=== PATIENT | female | born 1965 | race Caucasian/White ===

== ENCOUNTER 2018-02-18 06:43 | Inpatient (IN) | payer BC ==
[~2018-02-18 06:43] MED LIST: Famotidine 20 MG/2 ML SDV IVPUSH SCH; Ketorolac 30 MG/ML SDV IVPUSH SCH; Lactated Ringers 1,000 ML IV SCH; Scopolamine 1.5 MG Transdermal Patch TRDERM SCH
[2018-02-18] MEDS ORDERED: ePHEDrine 50 MG/ML SDV ONE ×2 (07:07→09:16)
[2018-02-18] MEDS ORDERED: ceFAZolin/Dextrose,Iso-Osmotic 2 GM/50 ML Duplex Bag IV ONE (07:07)
[2018-02-18] MEDS ORDERED: fentaNYL 100 MCG/2 ML SDV ONE (07:07)
[2018-02-18] MEDS ORDERED: Midazolam 1 MG/ML 2 ML SDV ONE ×2 (07:07→08:32)
[2018-02-18] MEDS ORDERED: Phenylephrine/Normal Saline 100 MCG/ML 10 ML Syringe ONE (07:07)
[2018-02-18] MEDS ORDERED: Propofol 200 MG/20 ML SDV ONE (07:12)
[2018-02-18] MEDS ORDERED: Ropivacaine 49.25 ML, Ketorolac 30 MG, EPINEPHrine 0.5 MG, cloNIDine 80 MCG in Sodium C... INJECT SCH (08:00)
[2018-02-18] MEDS ORDERED: Tranexamic Acid 4,000 MG in Sodium Chloride 0.9% 100 ML IV SCH (08:00)
[2018-02-18] MEDS ORDERED: Bupivacaine Liposome 1.3% 20 ML SDV INFILT SCH (08:00)
[2018-02-18] MEDS ORDERED: ceFAZolin 1 GM in Premix Bag 1 BAG IV SCH (08:00)
[2018-02-18] MEDS ORDERED: Ondansetron 4 MG/2 ML SDV ONE (08:20)
--- NOTE | 2018-02-18 09:46 | PCM.OPNOTE ---
- General Post-Op/Procedure Note Date of Surgery/Procedure: 02/18/18 Operative Procedure(s): L TKA Post-Op Diagnosis: DJD left knee Anesthesia Technique: Moderate Sedation, Spinal Primary Surgeon: Sherin Xavier Typesetting Machine Tender: Mabel Bentley Typesetting Machine Tender: Anoop Kohler in mLs: 50 Condition: Good Free Text/Narrative:: tt=52 min #[id number]
[2018-02-18] MEDS ORDERED: Ondansetron 4 MG/2 ML SDV IV PRN (09:57)
[2018-02-18] MEDS ORDERED: Bisacodyl 10 MG Supp RECTAL PRN (09:58)
[2018-02-18] MEDS ORDERED: Aluminum Hydroxide/Magnesium Hydroxide/Simethicone Susp 30 ML Cup PO PRN (09:58)
[2018-02-18] MEDS ORDERED: Morphine PF 30 MG/30 ML PCA Vial IV SCH (10:00)
[2018-02-18] MEDS ORDERED: HYDROmorphone 2 MG/ML SDV IVPUSH ONE (10:49)
[2018-02-18] MEDS ORDERED: Promethazine 25 MG/ML SDV IM ONE (10:49)
--- NOTE | 2018-02-18 10:49 | PCM.PREANE ---
Preanesthetic Assessment - Anesthesia/Transfusion/Family Hx Anesthesia History: Prior Anesthesia Without Reaction Family History of Anesthesia Reaction: No Transfusion History: Prior Transfusion Without Reaction - Physical Assessment NPO Status Date: 02/17/18 NPO Status Time: 19:00 O2 Sat by Pulse Oximetry: 100 Respiratory Rate: 15 Vital Signs: Last Vital Signs Temp 36.5 C 02/18/18 06:59 Pulse 77 02/18/18 10:44 Resp 15 02/18/18 10:44 BP 82/52 L 02/18/18 10:44 Pulse Ox 100 02/18/18 10:44 Height: 1.65 m Weight: 63.503 kg ASA Class: 2 Mental Status: Alert & Oriented x3 Airway Class: Mallampati = 2 Dentition: Reports: Dentures ROM/Head Extension: Full Lungs: Clear to Auscultation, Normal Respiratory Effort Cardiovascular: Regular Rate, Regular Rhythm - Lab Values: Laboratory Last Values Urine HCG, Qual NEGATIVE (NEGATIVE) 02/18/18 06:00 - Allergies Allergies/Adverse Reactions: Allergies Allergy/AdvReac Type Severity Reaction Status Date / Time codeine Allergy Nausea and Verified 02/18/18 08:18 Vomiting - Anesthesia Plan Pre-Op Medication Ordered: None - Acknowledgements Anesthesia Type Planned: Spinal Pt an Appropriate Candidate for the Planned Anesthesia: Yes Alternatives and Risks of Anesthesia Discussed w Pt/Guardian: Yes Pt/Guardian Understands and Agrees with Anesthesia Plan: Yes Additional Comments: PMH: chronic pain- on tramadol and gabipentin, htn, anxiety, adequately beta blocked Plan: spinal with sedation PreAnesthesia Questionnaire HEENT History: Reports: None Other HEENT History: wears glasses Cardiovascular History: Reports: Hypertension Respiratory History: Reports: None Gastrointestinal History: Reports: Other (See Below) Other Gastrointestinal History: hx of ? volvulus x2 Genitourinary History: Reports: None PILE DRIVER History: Reports: None Musculoskeletal History: Reports: Arthritis, Fracture Other Musculoskeletal History: hx of fx left elbow and ribs Neurological History: Reports: Head Trauma, Vertigo, Other (See Below) Other Neuro History: hx of motion sickness Psychiatric History: Reports: Anxiety Endocrine/Metabolic History: Reports: None Hematologic History: Reports: Blood Transfusion(s) Immunologic History: Reports: None Oncologic (Cancer) History: Reports: None Dermatologic History: Reports: None - Past Surgical History Head Surgeries/Procedures: Reports: None HEENT Surgical History: Reports: Naso-Sinus Surgery, Other (See Below) Other HEENT Surgeries/Procedures: hx of Rhinoplasty and traumatic injury to face with sinuses and nose repaired Cardiovascular Surgical History: Reports: None GI Surgical History: Reports: Appendectomy, Bariatric Procedure, Cholecystectomy , Colon, Hernia, Abdominal Other GI Surgeries/Procedures: hx of colon resection x2 for ? volvulus, umbilical hernia repair Female Surgical History: Reports: Breast Implant Endocrine Surgical History: Reports: None Neurological Surgical History: Reports: None Musculoskeletal Surgical History: Reports: Arthroscopic Knee, ORIF Other Musculoskeletal Surgeries/Procedures:: hx ORIF left elbow with hardware removed - SUBSTANCE USE Smoking Status *Q: Never Smoker Recreational Drug Use History: No - HOME MEDS Home Medications: Home Meds Acetaminophen [Tylenol] 1 - 2 tab PO Q4H PRN 02/13/18 [History] Gabapentin [Neurontin] 300 mg PO TID 02/13/18 [History] Ipratropium [place] 0.03 percent NASBOTH QAM 02/13/18 [History] Lisinopril [Prinivil] 20 mg PO QAM 02/13/18 [History] Metoprolol Succinate 50 mg PO QAM 02/13/18 [History] Potassium Chloride 20 meq PO BID 02/13/18 [History] traMADol [Ultram] 50 - 100 mg PO Q8H PRN 02/13/18 [History] - CURRENT (IN HOUSE) MEDS Current Meds: Current Medications Al Hydroxide/Mg Hydroxide (Mag-Al Plus) 30 ml PO Q4H PRN PRN Reason: indigestion Aspirin (Aspirin) 325 mg PO BID [facility] Bisacodyl (Dulcolax) 10 mg RECTAL DAILY PRN PRN Reason: Constipation Bupivacaine Liposome (Exparel) 20 ml INFILT ASDIRECTED [facility] Celecoxib (Celebrex) 200 mg PO BID [facility] Docusate Sodium (Colace) 100 mg PO BID [facility] Famotidine (Pepcid) 40 mg IVPUSH ONARRIVE [facility] Last Admin: 02/18/18 07:28 Dose: 40 mg Famotidine (Pepcid) 40 mg PO DAILY [facility] Gabapentin (Neurontin) 300 mg PO TID [facility] Cefazolin Sodium/Dextrose 1 gm (/ Premix) 50 mls @ 100 mls/hr IV ONCALL JOHN Ropivacaine 49.25 ml/Ketorolac Tromethamine 30 mg/Epinephrine HCl 0.5 mg/ Clonidine HCl 80 mcg/ Sodium Chloride 76.55 mls @ 50 mls/sec INJECT ASDIRECTED [facility] Lactated Ringer's (Ringers, Lactated) 1,000 mls @ 100 mls/hr IV ASDIRECTED [facility] Last Admin: 02/18/18 07:15 Dose: 100 mls/hr Tranexamic Acid 4,000 mg/ (Sodium Chloride) 140 mls @ 600 mls/hr IV ASDIRECTED [facility] Acetaminophen 1,000 mg/ Premix 100 mls @ 400 mls/hr IV Q6H JOHN Stop: 02/19/18 01:14 Cefazolin Sodium/Dextrose 1 gm (/ Premix) 50 mls @ 100 mls/hr IV Q8H [facility] Stop: 02/19/18 00:29 Ketorolac Tromethamine (Toradol) 30 mg IVPUSH ONARRIVE [facility] Last Admin: 02/18/18 07:23 Dose: 30 mg Ketorolac Tromethamine (Toradol) 30 mg IVPUSH Q6H JOHN Stop: 02/19/18 05:00 Lisinopril (Prinivil) 10 mg PO DAILY [facility] Metoprolol Succinate (Toprol Xl) 50 mg PO QAM [facility] Morphine Sulfate (Morphine Labor Law Professor 30 Mg In 30 Ml) 30 mg IV ASDIRECTED [facility]; Protocol Stop: 02/19/18 08:00 Last Admin: 02/18/18 10:27 Dose: 30 mg Morphine Sulfate (Morphine) 1 - 3 mg IVPUSH Q3H PRN PRN Reason: Pain Non-Formulary Medication (Ipratropium [place]) 0.03 percent NASBOTH QAM [facility] Ondansetron HCl (Zofran) 4 mg IV Q6HR PRN PRN Reason: NAUSEA/VOMITING Oxycodone HCl (Oxycodone) 5 - 10 mg PO Q4H PRN PRN Reason: Pain Stop: 02/19/18 08:00 Oxycodone/Acetaminophen (Percocet 325-5 Mg) 1 - 2 tab PO Q4H PRN PRN Reason: Pain Potassium Chloride (Klor-Con M20) 20 meq PO BID [facility] Scopolamine (Transderm-Scop) 1.5 mg TRDERM ONARRIVE [facility] Last Admin: 08/27/18 07:35 Dose: 1.5 mg Tramadol HCl (Ultram) 50 - 100 mg PO Q6H PRN PRN Reason: Pain Discontinued Medications Cefazolin Sodium/Dextrose (Ancef) Confirm Administered Dose 2 gm IV .STK-MED ONE Stop: 02/18/18 07:08 Ephedrine Sulfate (Ephedrine Sulfate) Confirm Administered Dose 50 mg .ROUTE .STK-MED ONE Stop: 02/18/18 07:08 Ephedrine Sulfate (Ephedrine Sulfate) Confirm Administered Dose 50 mg .ROUTE .STK-MED ONE Stop: 02/18/18 09:17 Fentanyl (Sublimaze) Confirm Administered Dose 100 mcg .ROUTE .STK-MED ONE Stop: 02/18/18 07:08 Midazolam HCl (Versed 1 Mg/Ml) Confirm Administered Dose 2 mg .ROUTE .STK-MED ONE Stop: 02/18/18 07:08 Midazolam HCl (Versed 1 Mg/Ml) Confirm Administered Dose 2 mg .ROUTE .STK-MED ONE Stop: 02/18/18 08:33 Ondansetron HCl (Zofran) Confirm Administered Dose 4 mg .ROUTE .STK-MED ONE Stop: 02/18/18 08:21 Phenylephrine HCl (Phenylephrine In Ns 100 Mcg/Ml) Confirm Administered Dose 1 mg .ROUTE .STK-MED ONE Stop: 02/18/18 07:08 Propofol (Diprivan 20 Ml) Confirm Administered Dose 600 mg .ROUTE .STK-MED ONE Stop: 02/18/18 07:13 Tranexamic Acid (Cyklokapron) Confirm Administered Dose 4,000 mg .ROUTE .STK- MED ONE Stop: 02/18/18 07:17
[2018-02-18] MEDS ORDERED: Phenylephrine 10 MG in Sodium Chloride 0.9% 99 ML IV SCH (11:00)
--- NOTE | 2018-02-18 11:24 | OR ---
SURGEON: Sherin Xavier MD DATE OF PROCEDURE: 02/18/2018 PREOPERATIVE DIAGNOSIS: Degenerative joint disease, left knee, tricompartmental. POSTOPERATIVE DIAGNOSIS: Degenerative joint disease, left knee, tricompartmental. PROCEDURE: Left total knee arthroplasty using patient specific instrumentation. ASSISTANTS: Mabel Bentley PA-C and Anoop Asher MD, PGY2 ANESTHESIA: Spinal with sedation. ESTIMATED BLOOD LOSS: 50 mL. TOURNIQUET TIME: 52 minutes. COMPLICATIONS: None. DVT PROPHYLAXIS: PAS boot and JOMAR hose to the nonoperative leg. IMPLANTS USED: Kamille Persona femoral component size 8 standard (LPS), tibial component size F, 10 mm all-polyethylene articular surface, and 32 mm all-polyethylene patella. 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 She also had evidence of significant chondromalacia along the patellofemoral joint. No significant synovitis was noted. She did have mild chondromalacia noted along the lateral compartment as well. BRIEF HISTORY: Sandra is a 52-year-old female, who has had complaint of progressive left knee pain. She has previously undergone conservative treatment including a knee arthroscopy, which did not give her lasting relief. Due to her lack of response to conservative treatment, I did recommend surgical intervention. The risks and goals of the procedure were discussed with the patient and were documented preoperatively. She agreed to proceed. DESCRIPTION OF PROCEDURE: The patient was properly identified and brought to the operating room. The patient was then transferred from the operating room cart and placed on the operating table in a supine position. Anesthesia was administered by the anesthesia staff. After adequate anesthesia was obtained, a well-padded tourniquet was applied to the surgical lower extremity. Gonzalez catheter was placed. The lower extremity was then prepped in standard fashion using ChloraPrep solution. It was then sterilely draped. A time-out was performed to ensure correct site and procedure. Preoperative antibiotics were given along with one gram of tranexamic acid IV. The surgical site had been marked preoperatively. An Esmarch was used to exsanguinate the left lower extremity and the tourniquet was inflated. An incision was made over the anterior aspect of the knee. The subcutaneous tissues were dissected down to the level of the fascia. A medial parapatellar approach to the knee was made. A portion of the infrapatellar fat pad was then excised. The distal femur was then exposed. The femoral patient-specific cutting guide was then placed. Pins were also placed. The distal femoral cutting block was placed and the distal femoral cut was made. Instrumentation was then removed. Both Whitesides' line and the epicondylar axis were then marked with electrocautery. The 4-in-1 cutting block was placed. This was placed in a slightly externally rotated position, which corresponded well with the previously drawn lines. The cutting guide was then pinned into position. An Jorge wing guide was used to check the depth of resection of our anterior condylar cut and it was felt that no notching would occur. The anterior condylar cut was then made followed by the posterior condylar cut. Both the posterior chamfer and anterior chamfer cuts were then made. The cutting block was then removed along with the excess bony remnants. We then turned our attention to the tibia. The anterior cruciate ligament and posterior cruciate ligament were released and a posterior cruciate ligament retractor was placed to allow the tibia to be pulled anteriorly. The tibial patient-specific guide was then placed on the proximal tibia. This fit anatomically. The pins were then placed. The proximal tibia cutting guide was then placed and screwed into position. The proximal tibial resection was then made with care being taken to protect the patellar tendon. The bony resection was then removed. The remainder of the medial and lateral meniscus were then excised. Care was taken to protect the popliteus tendon. The tibia was then sized to the appropriate size. The distal femur was then elevated. The posterior capsule was stripped off of the distal femur both medially and laterally. The posterior capsule along with the medial and lateral gutters were then injected with a standard mixture consisting of clonidine, epinephrine, Toradol, and Ropivacaine, unless any allergies were found preoperatively. The femoral component was then placed onto the distal femur in a slightly lateral position. This fit the femur well. A box cut was then made without difficulty. This was then removed. The tibial trial along with the polyethylene liner was then placed. The knee came easily into full extension and was stable to varus and valgus stressing both in full extension and flexion. Any additional releases were performed at this time. We then returned our attention to the patella. The patella was everted and towel clamps were used to hold the patella in position. It was resected to a 15 millimeter thickness. It was then sized to the appropriate size. It was prepared in the usual fashion after placing the predetermined size clamps. This was placed in a slightly superior and medial position. The clamp was then removed. The patellar trial button was placed. The knee was taken through a range of motion using the no-touch technique. The patella tracked centrally. A drop juany was then placed to check alignment. All instruments were then removed from the knee. The tibial sizer was then placed on the tibia. The tibia was prepared in the usual fashion using the reamer and broach. This was then removed. All bony surfaces were copiously irrigated with Pulsavac solution. They were then suctioned dry. Cement was prepared on the back table in the usual manner. Once it was prepared, the bone ends were again suctioned dry. The tibia was cemented into place first. This was malleted into position. Excess cement was then cleared. The femur was then placed in a similar manner. We placed the polyethylene trial into place and the knee was brought into full extension. An axial load was placed while keeping the knee in full extension. The patella button was also cemented into position and the clamp was used to hold this in place as the cement was allowed to cure. The wound was again copiously irrigated with saline solution using a Pulsavac harness fitter. Following this 1 g of tranexamic acid was applied to the wound topically. After we had adequate curing of the cement, the knee was again taken through a range of motion. The size of the polyethylene was then determined. The polyethylene trial was then removed. The tibial tray was suctioned to make sure there was no remaining soft tissue or cement. Excess cement was cleared from around the edges of the prosthesis as well. The tourniquet was then deflated. We were able to observe for any excess bleeding and none was noted. Electrocautery was used to maintain hemostasis. An additional gram of tranexamic acid was given IV. The retractors were again placed and the predetermined polyethylene was then placed. This was locked into position without difficulty. The knee was again taken through a range of motion with no change from the prior exam. The fascial layer was closed with Number One Vicryl. The subcutaneous tissues were closed with 2-0 Vicryl. The skin was closed with leandro. Xeroform gauze was placed over the wound and a bulky dressing was applied. The patient was then awakened from anesthesia and transferred back to the operating room cart. They were brought to the recovery room in stable condition. All needle and sponge counts were correct. YOSELYN KINGSLEY /[id number]
--- NOTE | 2018-02-18 12:09 | PCM.POSTAN ---
POST ANESTHESIA ASSESSMENT - MENTAL STATUS Mental Status: Alert, Oriented - VITAL SIGNS Pulse Rate: 54 SaO2: 97 Resp Rate: 16 - RESPIRATORY Respiratory Status: Respiratory Rate WNL, Airway Patent, O2 Saturation Stable - CARDIOVASCULAR CV Status: Pulse Rate WNL, Blood Pressure Stable - GASTROINTESTINAL GI Status: No Symptoms - PAIN Pain Score: 0 - POST OP HYDRATION Hydration Status: Adequate & Stable - OBSERVATIONS Free Text/Narrative:: I was called to PACU by Erin RN for patient with hypotension in the recovery room. On exam the patient is alert and oriented x3,
--- NOTE | 2018-02-18 12:17 | PCM.POSTAN ---
POST ANESTHESIA ASSESSMENT - MENTAL STATUS Mental Status: Alert, Oriented - VITAL SIGNS Pulse Rate: 54 SaO2: 97 Resp Rate: 16 Blood Pressure: 90/62 - RESPIRATORY Respiratory Status: Respiratory Rate WNL, Airway Patent, O2 Saturation Stable - CARDIOVASCULAR CV Status: Pulse Rate WNL, Blood Pressure Stable - GASTROINTESTINAL GI Status: No Symptoms - PAIN Pain Score: 0 (See Note) - POST OP HYDRATION Hydration Status: Adequate & Stable - OBSERVATIONS Free Text/Narrative:: Called to PACU by Erin GALINDO for patient with hypotension in PACU. On exam the patient is bradycardic and hypotensive with HR 50's SB to Junctional, and BP 74/ 43. After questioning the patient she states "I took by BP pills at 0400 this AM" when asked what she took she is not sure if it was her beta nancy, lisinopril, or both when questioned. The patient is also complaining of chest tightness at this time. EKG, CBC, BMP, and Trop were ordered. Nitro was held at this time as the patient is hypotensive. 1 Liter LR bolus ordered, Ephedrine 10mg IV given by me, an exaggerated BP response was noted at 200's/100 's. Ephedrine use was stopped and neosynephrine drip was started at 10mcg/min and titrated to 15mcg/min where the patients blood pressure began to stabilize at 90's/60's, the patient also reports her chest tightness is improving. On review of the Lab the patients Troponin is elevated slightly, Dr Xavier was notified and I spoke with Dr Puentes regarding the patients status and her lab findings. She will examine the patient and assume medical care at this time.
[2018-02-18] MEDS: Ketorolac 30 MG/ML SDV IVPUSH SCH ×2 (13:00→20:07)
[2018-02-18] MEDS ORDERED: Aspirin 325 MG Tab.EC PO ONE (13:08)
[2018-02-18] MEDS ORDERED: atorvaSTATin 40 MG Tab PO ONE (13:09)
[2018-02-18] MEDS ORDERED: Lactated Ringers 1,000 ML IV SCH (13:15)
[2018-02-18] MEDS: oxyCODONE 5 MG Tab PO PRN ×3 (13:30→21:07)
[2018-02-18] MEDS: Gabapentin 300 MG Cap PO SCH ×2 (14:00→21:09)
[2018-02-18] MEDS: Acetaminophen 1,000 MG in Premix Bag 1 BAG IV SCH ×2 (15:36→20:15)
--- NOTE | 2018-02-18 15:51 | PCM.CONS ---
H&P History of Present Illness - General Date of Service: 02/18/18 Admit Problem/Dx: Admission Diagnosis/Problem Admission Diagnosis/Problem Replacement of total knee joint Source of Information: Patient History Limitations: Reports: No Limitations - History of Present Illness Initial Comments - Free Text/Narative: Patient 52 years old female who went to OR today to have Rt right knee replacement, she developed unstable blood pressure with blood pressure going very high and in 180 systolic and then her blood pressures came down to 80/50. Patient had spinal anesthesia and she was not awake during the procedure . She developed chest pain pressure-like and she was given 3 L of IV fluids and her blood pressure did not improve and she was started on pressors. She was started on norepinephrine and she was on 15 mcq of norepinephrine when she came in ICU. Her chest pain lasted for about 30 minutes and her cardiac enzymes were positive at 0.2. Patient took today lisinopril 20 mg by mouth and also metoprolol 50 mg by mouth prior to surgery Onset of Symptoms: Reports: Today, Gradual Duration of Symptoms: Reports: Hour(s): Location: Reports: Chest Quality: Reports: Pressure Left Knee Pain Score (Numeric/FACES): 8 - Related Data Allergies/Adverse Reactions: Allergies Allergy/AdvReac Type Severity Reaction Status Date / Time codeine Allergy Nausea and Verified 02/18/18 08:18 Vomiting Home Medications: Home Meds Acetaminophen [Tylenol] 1 - 2 tab PO Q4H PRN 02/13/18 [History] Gabapentin [Neurontin] 300 mg PO TID 02/13/18 [History] Ipratropium [place] 0.03 percent NASBOTH QAM 02/13/18 [History] Lisinopril [Prinivil] 20 mg PO QAM 02/13/18 [History] Metoprolol Succinate 50 mg PO QAM 02/13/18 [History] Potassium Chloride 20 meq PO BID 02/13/18 [History] traMADol [Ultram] 50 - 100 mg PO Q8H PRN 02/13/18 [History] Past Medical History HEENT History: Reports: None Other HEENT History: wears glasses Cardiovascular History: Reports: Hypertension Respiratory History: Reports: None Gastrointestinal History: Reports: Other (See Below) Other Gastrointestinal History: hx of ? volvulus x2 Genitourinary History: Reports: None CLINICAL RESEARCH ASSOCIATE History: Reports: None Musculoskeletal History: Reports: Arthritis, Fracture Other Musculoskeletal History: hx of fx left elbow and ribs Neurological History: Reports: Head Trauma, Vertigo, Other (See Below) Other Neuro History: hx of motion sickness Psychiatric History: Reports: Anxiety Endocrine/Metabolic History: Reports: None Hematologic History: Reports: Blood Transfusion(s) Immunologic History: Reports: None Oncologic (Cancer) History: Reports: None Dermatologic History: Reports: None - Past Surgical History Head Surgeries/Procedures: Reports: None HEENT Surgical History: Reports: Naso-Sinus Surgery, Other (See Below) Other HEENT Surgeries/Procedures: hx of Rhinoplasty and traumatic injury to face with sinuses and nose repaired Cardiovascular Surgical History: Reports: None GI Surgical History: Reports: Appendectomy, Bariatric Procedure, Cholecystectomy , Colon, Hernia, Abdominal Other GI Surgeries/Procedures: hx of colon resection x2 for ? volvulus, umbilical hernia repair Female Surgical History: Reports: Breast Implant Endocrine Surgical History: Reports: None Neurological Surgical History: Reports: None Musculoskeletal Surgical History: Reports: Arthroscopic Knee, ORIF Other Musculoskeletal Surgeries/Procedures:: hx ORIF left elbow with hardware removed Social & Family History - Tobacco Use Smoking Status *Q: Never Smoker - Caffeine Use Caffeine Use: Reports: None - Recreational Drug Use Recreational Drug Use: No Drug Use in Last 12 Months: No H&P Review of Systems - Review of Systems: Review Of Systems: See Below General: Reports: No Symptoms HEENT: Reports: No Symptoms Pulmonary: Reports: No Symptoms Cardiovascular: Reports: Chest Pain, Blood Pressure Problem Gastrointestinal: Reports: No Symptoms Genitourinary: Reports: No Symptoms Musculoskeletal: Reports: Leg Pain, Other Skin: Reports: No Symptoms Psychiatric: Reports: No Symptoms Neurological: Reports: No Symptoms Hematologic/Lymphatic: Reports: No Symptoms Immunologic: Reports: No Symptoms Exam - Exam Exam: See Below - Vital Signs Vital Signs: Last Vital Signs Temp 97.7 F 02/18/18 06:59 Pulse 54 L 02/18/18 12:22 Resp 16 02/18/18 12:22 BP 90/62 02/18/18 12:22 Pulse Ox 97 02/18/18 12:22 Weight: 140 lb - Exam General: Alert, Oriented HEENT: Conjunctiva Clear Neck: Supple, Trachea Midline, Full Range of Motion Lungs: Clear to Auscultation, Normal Respiratory Effort Cardiovascular: Regular Rate, Regular Rhythm, Normal S1, Normal S2 GI/Abdominal Exam: Normal Bowel Sounds, Soft, Non-Tender, No Organomegaly, No Distention Back Exam: Normal Inspection Extremities: Other (Left leg dressing) Skin: Warm, Dry Neurological: Cranial Nerves Intact Neuro Extensive - Mental Status: Alert, Oriented x3 Neuro Extensive - Motor, Sensory, Reflexes: CN II-XII Intact Psychiatric: Alert, Normal Affect, Normal Mood - Patient Data Lab Results Last 24 hrs: Laboratory Results - last 24 hr 02/18/18 02/18/18 02/18/18 Range/Units 06:00 06:00 07:45 WBC (4.0-11.0) K/uL RBC (4.30-5.90) M/uL Hgb (12.0-16.0) g/dL Hct (36.0-46.0) % MCV (80.0-98.0) fL MCH (27.0-32.0) pg MCHC (31.0-37.0) g/dL RDW Std Deviation (28.0-62.0) fl RDW Coeff of Leland (11.0-15.0) % Plt Count (150-400) K/uL MPV (7.40-12.00) fL Neut % (Auto) (48.0-80.0) % Lymph % (Auto) (16.0-40.0) % Reeves % (Auto) (0.0-15.0) % Eos % (Auto) (0.0-7.0) % Baso % (Auto) (0.0-1.5) % Neut # (Auto) (1.4-5.7) K/uL Lymph # (Auto) (0.6-2.4) K/uL Reeves # (Auto) (0.0-0.8) K/uL Eos # (Auto) (0.0-0.7) K/uL Baso # (Auto) (0.0-0.1) K/uL Nucleated RBC % /100WBC Nucleated RBCs # K/uL Sodium (136-145) mmol/L Potassium (3.5-5.1) mmol/L Chloride (98-107) mmol/L Carbon Dioxide (21.0-32.0) mmol/L BUN (7.0-18.0) mg/dL Creatinine (0.6-1.0) mg/dL Est Cr Clr Drug Dosing mL/min Estimated GFR (MDRD) ml/min Glucose (74-106) mg/dL Hemoglobin A1c (4.5-6.2) % Calcium (8.5-10.1) mg/dL Troponin I (0.000-0.056) ng/mL Triglycerides (0-200) mg/dL Cholesterol (50-200) mg/dL LDL Cholesterol, Calc (60-180) mg/dL VLDL Cholesterol (5-55) mg/dL HDL Cholesterol (40-60) mg/dL Cholesterol/HDL Ratio (3.3-6.0) Urine HCG, Qual NEGATIVE (NEGATIVE) Urine Opiates Screen NEGATIVE (NEGATIVE) Ur Oxycodone Screen NEGATIVE (NEGATIVE) Urine Methadone Screen NEGATIVE (NEGATIVE) Ur Barbiturates Screen NEGATIVE (NEGATIVE) Ur Phencyclidine Scrn NEGATIVE (NEGATIVE) Ur Amphetamine Screen NEGATIVE (NEGATIVE) U Methamphetamines Scrn NEGATIVE (NEGATIVE) U Benzodiazepines Scrn NEGATIVE (NEGATIVE) U Cocaine Metab Screen NEGATIVE (NEGATIVE) U Marijuana (THC) Screen NEGATIVE (NEGATIVE) Blood Type B POSITIVE Antibody Screen POSITIVE Antibody Identification Anti-K Antigen Typing K Antigen - NEGATIVE Crossmatch 02/18/18 02/18/18 02/18/18 Range/Units 07:45 10:55 10:55 WBC 9.03 (4.0-11.0) K/uL RBC 3.59 L (4.30-5.90) M/uL Hgb 11.1 L (12.0-16.0) g/dL Hct 35.2 L (36.0-46.0) % MCV 98.1 H (80.0-98.0) fL MCH 30.9 (27.0-32.0) pg MCHC 31.5 (31.0-37.0) g/dL RDW Std Deviation 59.2 (28.0-62.0) fl RDW Coeff of Leland 16 H (11.0-15.0) % Plt Count 166 (150-400) K/uL MPV 9.10 (7.40-12.00) fL Neut % (Auto) 74.6 (48.0-80.0) % Lymph % (Auto) 16.1 (16.0-40.0) % Reeves % (Auto) 6.9 (0.0-15.0) % Eos % (Auto) 2.1 (0.0-7.0) % Baso % (Auto) 0.3 (0.0-1.5) % Neut # (Auto) 6.7 H (1.4-5.7) K/uL Lymph # (Auto) 1.5 (0.6-2.4) K/uL Reeves # (Auto) 0.6 (0.0-0.8) K/uL Eos # (Auto) 0.2 (0.0-0.7) K/uL Baso # (Auto) 0.0 (0.0-0.1) K/uL Nucleated RBC % 0.0 /100WBC Nucleated RBCs # 0 K/uL Sodium 137 (136-145) mmol/L Potassium 3.8 (3.5-5.1) mmol/L Chloride 104 (98-107) mmol/L Carbon Dioxide 30.4 (21.0-32.0) mmol/L BUN 15 (7.0-18.0) mg/dL Creatinine 1.0 (0.6-1.0) mg/dL Est Cr Clr Drug Dosing 59.89 mL/min Estimated GFR (MDRD) 58.5 ml/min Glucose 120 H (74-106) mg/dL Hemoglobin A1c (4.5-6.2) % Calcium 8.2 L (8.5-10.1) mg/dL Troponin I 0.519 H* (0.000-0.056) ng/mL Triglycerides (0-200) mg/dL Cholesterol (50-200) mg/dL LDL Cholesterol, Calc (60-180) mg/dL VLDL Cholesterol (5-55) mg/dL HDL Cholesterol (40-60) mg/dL Cholesterol/HDL Ratio (3.3-6.0) Urine HCG, Qual (NEGATIVE) Urine Opiates Screen (NEGATIVE) Ur Oxycodone Screen (NEGATIVE) Urine Methadone Screen (NEGATIVE) Ur Barbiturates Screen (NEGATIVE) Ur Phencyclidine Scrn (NEGATIVE) Ur Amphetamine Screen (NEGATIVE) U Methamphetamines Scrn (NEGATIVE) U Benzodiazepines Scrn (NEGATIVE) U Cocaine Metab Screen (NEGATIVE) U Marijuana (THC) Screen (NEGATIVE) Blood Type Antibody Screen Antibody Identification Antigen Typing Crossmatch See Detail 08/02/18/18 02/18/18 Range/Units 10:55 10:55 13:24 WBC (4.0-11.0) K/uL RBC (4.30-5.90) M/uL Hgb (12.0-16.0) g/dL Hct (36.0-46.0) % MCV (80.0-98.0) fL MCH (27.0-32.0) pg MCHC (31.0-37.0) g/dL RDW Std Deviation (28.0-62.0) fl RDW Coeff of Leland (11.0-15.0) % Plt Count (150-400) K/uL MPV (7.40-12.00) fL Neut % (Auto) (48.0-80.0) % Lymph % (Auto) (16.0-40.0) % Reeves % (Auto) (0.0-15.0) % Eos % (Auto) (0.0-7.0) % Baso % (Auto) (0.0-1.5) % Neut # (Auto) (1.4-5.7) K/uL Lymph # (Auto) (0.6-2.4) K/uL Reeves # (Auto) (0.0-0.8) K/uL Eos # (Auto) (0.0-0.7) K/uL Baso # (Auto) (0.0-0.1) K/uL Nucleated RBC % /100WBC Nucleated RBCs # K/uL Sodium (136-145) mmol/L Potassium (3.5-5.1) mmol/L Chloride (98-107) mmol/L Carbon Dioxide (21.0-32.0) mmol/L BUN (7.0-18.0) mg/dL Creatinine (0.6-1.0) mg/dL Est Cr Clr Drug Dosing mL/min Estimated GFR (MDRD) ml/min Glucose (74-106) mg/dL Hemoglobin A1c 5.4 (4.5-6.2) % Calcium (8.5-10.1) mg/dL Troponin I 1.242 H* (0.000-0.056) ng/mL Triglycerides 62 (0-200) mg/dL Cholesterol 129 (50-200) mg/dL LDL Cholesterol, Calc 51 L (60-180) mg/dL VLDL Cholesterol 12 (5-55) mg/dL HDL Cholesterol 66 H (40-60) mg/dL Cholesterol/HDL Ratio 2.0 L (3.3-6.0) Urine HCG, Qual (NEGATIVE) Urine Opiates Screen (NEGATIVE) Ur Oxycodone Screen (NEGATIVE) Urine Methadone Screen (NEGATIVE) Ur Barbiturates Screen (NEGATIVE) Ur Phencyclidine Scrn (NEGATIVE) Ur Amphetamine Screen (NEGATIVE) U Methamphetamines Scrn (NEGATIVE) U Benzodiazepines Scrn (NEGATIVE) U Cocaine Metab Screen (NEGATIVE) U Marijuana (THC) Screen (NEGATIVE) Blood Type Antibody Screen Antibody Identification Antigen Typing Crossmatch Result Diagrams: 02/18/18 10:55 02/18/18 10:55 Consult PN Assessment/Plan Procedures: Procedures ASSAY OF ESTRADIOL (11/30/17) ASSAY OF FERRITIN (11/30/17) ASSAY OF FOLIC ACID SERUM (12/04/17) ASSAY OF GONADOTROPIN (FSH) (11/30/17) ASSAY THYROID STIM HORMONE (11/30/17) NAM DNA DIR PROBE (12/04/17) COMPLETE CBC AUTOMATED (11/30/17) ALVAREZ VAG DNA DIR PROBE (12/04/17) IMMUNOASSAY TUMOR CA 125 (12/04/17) IRON BINDING TEST (11/30/17) KNEE ARTHROSCOPY/SURGERY (11/17/15) MRI JNT OF LWR EXTRE W/O DYE (01/21/18) PT EVALUATION (12/16/15) THER/PROPH/DIAG IV INF INIT (12/13/17) THERAPEUTIC EXERCISES (12/16/15) TISSUE EXAM BY PATHOLOGIST (12/04/17) TRICHOMONAS VAGIN DIR PROBE (12/04/17) URINE TEST (11/17/15) VITAMIN B-12 (12/04/17) X-RAY EXAM HIPS BI 2 VIEWS (04/26/17) X-RAY EXAM KNEE 4 OR MORE (01/15/18) X-RAY EXAM OF KNEE 3 (10/13/15) (1) Hypotension due to drugs Current Visit: Yes (2) Chest pain due to myocardial ischemia SNOMED Code(s): 574695747 Code(s): I25.9 - CHRONIC ISCHEMIC HEART DISEASE, UNSPECIFIED Current Visit : Yes (3) Elevated troponin SNOMED Code(s): 248581716, 571336541, 152264531 Code(s): R74.8 - ABNORMAL LEVELS OF OTHER SERUM ENZYMES Current Visit: Yes (4) HTN (hypertension), benign SNOMED Code(s): 95345524 Code(s): I10 - ESSENTIAL (PRIMARY) HYPERTENSION Current Visit: Yes (5) S/P gastric bypass SNOMED Code(s): 428060620, 196490148, 089313932, 127913543 Code(s): Z98.84 - BARIATRIC SURGERY STATUS Current Visit: Yes Problem List Initiated/Reviewed/Updated: Yes My Orders Last 24 Hours: My Active Orders 02/18/18 06:00 DRUG SCREEN, URINE [URCHEM] Routine 02/18/18 12:35 EKG 12 Lead [EKG Documentation Completion] [RC] STAT 02/18/18 13:07 Echo Comp wo Cont [US] Stat 02/18/18 13:15 Lactated Ringers [Ringers, Lactated] 1,000 ml IV ASDIRECTED 02/18/18 13:27 Consult to Physician [CONS] Routine 02/18/18 13:28 Notify Provider Consults [RC] ASDIRECTED 02/18/18 16:00 EKG 12 Lead [EKG Documentation Completion] [RC] ROUTINE EKG shows sinus rhythm at this [address]-T changes qrs. 107 We'll admit patient to ICU, observation Will continue patient with norepinephrine drip to maintain mean arterial blood pressure above 65 We'll follow-up serial troponins, will give patient aspirin 325 mg 1 dose, atorvastatin 80 mg 1 dose will order lipid profile and hemoglobin A1c, will give patient regarding her lactate at 1 25 mL/h, will continue pain medication but will discontinue Toradol" andColecoxib , as NSAIDS shouldnt be given in [place] The cardiac echo stat and the case was discussed with cardiology Dr. Stephenson. He will come and see the patient Date Consult Requested: 02/18/18 Reason for Consult: Hypotensionl elevated troponins Patient History Reviewed: Yes Admission H&P Reviewed: Yes Consult Result/Summary:: Hypotension and due to medications, chest pain due to demand ischemia Notified Requestor: Yes Time Spent (in minutes): 60
[2018-02-18] MEDS: ceFAZolin 1 GM in Premix Bag 1 BAG IV SCH (16:12)
--- NOTE | 2018-02-18 16:26 | CR ---
EXAM DATE: 02/18/18 PATIENT'S AGE: 52 Patient: SALMA BUCK Facility: [place], [place] Site . Site : 1965 Study: XRay Knee Left [id number] 12:01:50 PM Ordering Physician: Morenita Duff Final Report: Indication: Left knee arthroplasty Technique: Left knee 2 view Findings: Hardware from a left knee is in satisfactory position. Bone alignment is normal. No sign of acute fracture. There are postoperative changes in the soft tissues. Dictated by Leonid Schulz MD @ Feb 18 2018 2:29PM (Electronic Signature) Report Signed by Proxy. LUZ MARIA
--- NOTE | 2018-02-18 16:58 | CONS ---
DATE OF CONSULTATION: DATE OF : 1965 PRIMARY CARE PHYSICIAN: JANETTE GUZMAN NP REASON FOR CONSULTATION: Chest pain and elevation of troponin. HISTORY OF PRESENT ILLNESS: This is a 52-year-old female with history of hypertension, history of brain bleeding in the past, who was admitted to the hospital for a knee replacement. She just had a surgery this morning. However, right after the operation, she started having chest pain which she describes as an elephant sitting on top of her chest. She rated as an 8 from 10 pain scale, no radiation, it lasted for few minutes. She got a spinal block for her anesthesia, and her blood pressure was fluctuated. The highest number was 180/100 and also it was lower as well, the lowest one was around 70/40 and that was the reason Jose-Synephrine was started with 50 mcg and it was ramped up to 100 mcg. She was in sinus for the whole time with a heart rate between 50 to 80, O2 saturation 95% on room air. Currently, she got IV fluid with the rate of 125 mL/hour, and her home medications including lisinopril 20 mg once a day, metoprolol 50 mg once a day, which have been on hold, have not been restarted yet after the operation. She denied history of diabetes or hyperlipidemia. She never had a chest pain. Denied history of chest tightness or having a stress test in the past. She works as a application development project manager. She stated that she walked all day long and she can walk up to 4 floors nonstop without chest pain and shortness of breath. She stated that she has a knee pain and it affected her knee when she walks downstairs, not upstairs. Otherwise, she can walk upstairs 4 floors without any chest pain or shortness of breath and she is doing that well. PAST MEDICAL HISTORY: Otherwise, past medical history including chronic knee pain, hypertension, anemia due to B12 deficiency, status post gastric bypass for obesity, history of renal failure, ovarian cyst, narrow complex tachycardia. PAST SURGICAL HISTORY: Including appendectomy, breast surgery, cholecystectomy, colectomy, hernia repair, incisional repair, ovarian cystectomy. FAMILY HISTORY: Mother had a history of a heart attack at the age of 56. SOCIAL HISTORY: Never smoked. Very occasional alcohol use. No drug use. REVIEW OF SYSTEMS: Except indicated in HPI, otherwise has been negative. PHYSICAL EXAMINATION: VITAL SIGNS: Initial blood pressure when she got in was low, like 80/50, but current blood pressure is improving to 160; the heart rate was 50 to 60; O2 saturation 100% on 2 L and 90% on room air; and Jose-Synephrine was stopped already. She is still on IV fluid. Respiration rate 12 to 16. HEENT: Not pale. No jaundice. No JVD. HEART: Normal S1, S2. No murmur. LUNGS: Clear. ABDOMEN: Soft, nontender. Bowel sounds are present. No hepatosplenomegaly. No edema. INVESTIGATION: EKG, January 2018, shows sinus bradycardia, heart rate of 57, DC interval 117, QRS duration 112, QTc interval 432. The current EKG shows sinus rhythm, unchanged from before, heart rate of 55, DC interval 158, QRS duration 106, QTc interval 462, and an echocardiogram, February 18, 2018, ejection fraction probably mildly reduced and 45% to 50%. Mild MR. Otherwise, I could not appreciate regional wall motion abnormality even though there was some it was foreshortened including the parasternal short axis as well as the four-chamber and seemed to be foreshortened. BLOOD WORK: CBC showed WBC 9, hematocrit 35, hemoglobin is 11, platelet 166. Sodium 137, potassium 3.8, chloride 104, bicarb 30, BUN 15, creatinine 1. A1c 5.04. Troponin was 0.5 and going up to 1.2. Total cholesterol 129, LDL 51, HDL 66. ASSESSMENT AND PLAN: This is a 52-year-old female history of hypertension, status post knee surgery, postoperative day 0, status post a spinal block, developed intraoperative hypotension that could be related to anesthesia with the spinal block. I believe these could be demand ischemia from hypotension episode. We will hold off on the beta nancy for now due to the low blood pressure. The IV fluids should be continued and an aspirin should be started at 81, along with the Lipitor. She should need a stress test done as an outpatient, and due to the knee surgery, she probably needs chemical Lexiscan and then cycle cardiac enzymes, repeat EKG again at 4:00 as well as tomorrow morning. MOUNIKA / TEETEE /[id number]
[2018-02-18] MEDS: Potassium Chloride 20 MEQ Tab.ER PO SCH (20:07)
[2018-02-18] MEDS: Docusate Sodium 100 MG Cap PO SCH (20:07)
[2018-02-18] MEDS: traMADol 50 MG Tab PO PRN (22:26)
[2018-02-19] MEDS: ceFAZolin 1 GM in Premix Bag 1 BAG IV SCH (00:21)
[2018-02-19] MEDS: Ketorolac 30 MG/ML SDV IVPUSH SCH (00:49)
[2018-02-19] MEDS: Acetaminophen 1,000 MG in Premix Bag 1 BAG IV SCH (00:49)
[2018-02-19] MEDS: oxyCODONE 5 MG Tab PO PRN ×2 (01:17→05:21)
[2018-02-19] MEDS: Gabapentin 300 MG Cap PO SCH ×3 (05:20→21:56)
--- NOTE | 2018-02-19 07:07 | PCM48HPAN ---
Post Anesthesia Note - EVALUATION WITHIN 48HRS OF ANESTHETIC Vital Signs in Normal Range: Yes Patient Participated in Evaluation: Yes Respiratory Function Stable: Yes Airway Patent: Yes Cardiovascular Function Stable: Yes Hydration Status Stable: Yes Pain Control Satisfactory: Yes (Present but tolerable. Taking Oxycodone and using SHIPPING AND RECEIVING COORDINATOR) Nausea and Vomiting Control Satisfactory: Yes Mental Status Recovered: Yes Pulse Rate: 64 SaO2: 98 Resp Rate: 16 Temperature: 37.1 C Blood Pressure: 120/78 Pulse Rate: 64 - COMMENTS/OBSERVATIONS Free Text/Narrative:: Doing well. Up in chair. Using pain meds as needed. Progressing well.
[2018-02-19] MEDS: traMADol 50 MG Tab PO PRN ×3 (07:29→22:04)
[2018-02-19] MEDS ORDERED: Acetaminophen/oxyCODONE 325-5 MG Tab PO PRN (08:00)
[2018-02-19] MEDS ORDERED: Morphine 4 MG/ML Syringe IVPUSH PRN (08:00)
[2018-02-19] MEDS: Docusate Sodium 100 MG Cap PO SCH ×2 (08:04→21:06)
[2018-02-19] MEDS: Potassium Chloride 20 MEQ Tab.ER PO SCH ×2 (08:04→21:06)
[2018-02-19] MEDS: Famotidine 20 MG Tab PO SCH (08:04)
[2018-02-19] MEDS: IPRATROPIUM BROMIDE NASBOTH SCH (08:04)
[2018-02-19] MEDS: Aspirin 325 MG Tab PO SCH ×2 (08:04→21:06)
[2018-02-19] MEDS: Lisinopril 10 MG Tab PO SCH (08:05)
[2018-02-19] MEDS: Metoprolol Succinate 50 MG Tab.ER PO SCH (08:05)
--- NOTE | 2018-02-19 08:20 | PCM.SURGPN ---
<Anoop Kohler - Last Filed: 02/19/18 08:21> - General Info Date of Service: 02/19/18 Date of Surgery/Procedure: 02/18/18 POD#: 1 Post-Op Diagnosis: s/p L total knee arthroplasy Functional Status: Reports: Tolerating Diet (patient reports more pain today than yesterday) - Review of Systems General: Reports: No Symptoms. Denies: Fever, Weakness, Malaise HEENT: Reports: No Symptoms Pulmonary: Reports: No Symptoms. Denies: Shortness of Breath Cardiovascular: Denies: Chest Pain, Orthopnea, Lightheadedness Gastrointestinal: Denies: Abdominal Pain, Diarrhea, Vomiting Genitourinary: Reports: Other (produced adequate UOP overnight; butts was removed this morning so she has not yet voided) Musculoskeletal: Reports: No Symptoms Skin: Reports: No Symptoms Neurological: Reports: Other (the left foot numbness present on post-op exam has resolved). Denies: Numbness, Paresthesia, Tingling, Weakness Psychiatric: Reports: No Symptoms - Patient Data Vitals - Most Recent: Last Vital Signs Temp 98.8 F 02/19/18 08:00 Pulse 77 02/19/18 08:05 Resp 16 02/19/18 08:00 BP 139/88 02/19/18 08:05 Pulse Ox 97 02/19/18 08:00 Weight - Most Recent: 63.503 kg I&O - Last 24 Hours: Intake & Output 02/18/18 02/19/18 02/19/18 22:59 06:59 14:59 Intake Total 1410 1947 Output Total 400 1300 200 Balance 1010 647 -200 Lab Results Last 24 Hrs: Laboratory Results - last 24 hr 02/18/18 02/18/18 02/18/18 Range/Units 06:00 07:45 07:45 WBC (4.0-11.0) K/uL RBC (4.30-5.90) M/uL Hgb (12.0-16.0) g/dL Hct (36.0-46.0) % MCV (80.0-98.0) fL MCH (27.0-32.0) pg MCHC (31.0-37.0) g/dL RDW Std Deviation (28.0-62.0) fl RDW Coeff of Leland (11.0-15.0) % Plt Count (150-400) K/uL MPV (7.40-12.00) fL Neut % (Auto) (48.0-80.0) % Lymph % (Auto) (16.0-40.0) % Norman % (Auto) (0.0-15.0) % Eos % (Auto) (0.0-7.0) % Baso % (Auto) (0.0-1.5) % Neut # (Auto) (1.4-5.7) K/uL Lymph # (Auto) (0.6-2.4) K/uL Norman # (Auto) (0.0-0.8) K/uL Eos # (Auto) (0.0-0.7) K/uL Baso # (Auto) (0.0-0.1) K/uL Nucleated RBC % /100WBC Nucleated RBCs # K/uL Sodium (136-145) mmol/L Potassium (3.5-5.1) mmol/L Chloride (98-107) mmol/L Carbon Dioxide (21.0-32.0) mmol/L BUN (7.0-18.0) mg/dL Creatinine (0.6-1.0) mg/dL Est Cr Clr Drug Dosing mL/min Estimated GFR (MDRD) ml/min Glucose (74-106) mg/dL Hemoglobin A1c (4.5-6.2) % Calcium (8.5-10.1) mg/dL Troponin I (0.000-0.056) ng/mL Triglycerides (0-200) mg/dL Cholesterol (50-200) mg/dL LDL Cholesterol, Calc (60-180) mg/dL VLDL Cholesterol (5-55) mg/dL HDL Cholesterol (40-60) mg/dL Cholesterol/HDL Ratio (3.3-6.0) Urine Opiates Screen NEGATIVE (NEGATIVE) Ur Oxycodone Screen NEGATIVE (NEGATIVE) Urine Methadone Screen NEGATIVE (NEGATIVE) Ur Barbiturates Screen NEGATIVE (NEGATIVE) Ur Phencyclidine Scrn NEGATIVE (NEGATIVE) Ur Amphetamine Screen NEGATIVE (NEGATIVE) U Methamphetamines Scrn NEGATIVE (NEGATIVE) U Benzodiazepines Scrn NEGATIVE (NEGATIVE) U Cocaine Metab Screen NEGATIVE (NEGATIVE) U Marijuana (THC) Screen NEGATIVE (NEGATIVE) Blood Type B POSITIVE Antibody Screen POSITIVE Antibody Identification Anti-K Antigen Typing K Antigen - NEGATIVE Crossmatch See Detail 02/18/18 02/18/18 02/18/18 Range/Units 10:55 10:55 10:55 WBC 9.03 (4.0-11.0) K/uL RBC 3.59 L (4.30-5.90) M/uL Hgb 11.1 L (12.0-16.0) g/dL Hct 35.2 L (36.0-46.0) % MCV 98.1 H (80.0-98.0) fL MCH 30.9 (27.0-32.0) pg MCHC 31.5 (31.0-37.0) g/dL RDW Std Deviation 59.2 (28.0-62.0) fl RDW Coeff of Leland 16 H (11.0-15.0) % Plt Count 166 (150-400) K/uL MPV 9.10 (7.40-12.00) fL Neut % (Auto) 74.6 (48.0-80.0) % Lymph % (Auto) 16.1 (16.0-40.0) % Norman % (Auto) 6.9 (0.0-15.0) % Eos % (Auto) 2.1 (0.0-7.0) % Baso % (Auto) 0.3 (0.0-1.5) % Neut # (Auto) 6.7 H (1.4-5.7) K/uL Lymph # (Auto) 1.5 (0.6-2.4) K/uL Norman # (Auto) 0.6 (0.0-0.8) K/uL Eos # (Auto) 0.2 (0.0-0.7) K/uL Baso # (Auto) 0.0 (0.0-0.1) K/uL Nucleated RBC % 0.0 /100WBC Nucleated RBCs # 0 K/uL Sodium 137 (136-145) mmol/L Potassium 3.8 (3.5-5.1) mmol/L Chloride 104 (98-107) mmol/L Carbon Dioxide 30.4 (21.0-32.0) mmol/L BUN 15 (7.0-18.0) mg/dL Creatinine 1.0 (0.6-1.0) mg/dL Est Cr Clr Drug Dosing 59.89 mL/min Estimated GFR (MDRD) 58.5 ml/min Glucose 120 H (74-106) mg/dL Hemoglobin A1c (4.5-6.2) % Calcium 8.2 L (8.5-10.1) mg/dL Troponin I 0.519 H* (0.000-0.056) ng/mL Triglycerides 62 (0-200) mg/dL Cholesterol 129 (50-200) mg/dL LDL Cholesterol, Calc 51 L (60-180) mg/dL VLDL Cholesterol 12 (5-55) mg/dL HDL Cholesterol 66 H (40-60) mg/dL Cholesterol/HDL Ratio 2.0 L (3.3-6.0) Urine Opiates Screen (NEGATIVE) Ur Oxycodone Screen (NEGATIVE) Urine Methadone Screen (NEGATIVE) Ur Barbiturates Screen (NEGATIVE) Ur Phencyclidine Scrn (NEGATIVE) Ur Amphetamine Screen (NEGATIVE) U Methamphetamines Scrn (NEGATIVE) U Benzodiazepines Scrn (NEGATIVE) U Cocaine Metab Screen (NEGATIVE) U Marijuana (THC) Screen (NEGATIVE) Blood Type Antibody Screen Antibody Identification Antigen Typing Crossmatch 02/18/18 02/18/18 02/19/18 Range/Units 10:55 13:24 05:20 WBC (4.0-11.0) K/uL RBC (4.30-5.90) M/uL Hgb 9.6 L (12.0-16.0) g/dL Hct 30.7 L (36.0-46.0) % MCV (80.0-98.0) fL MCH (27.0-32.0) pg MCHC (31.0-37.0) g/dL RDW Std Deviation (28.0-62.0) fl RDW Coeff of Leland (11.0-15.0) % Plt Count (150-400) K/uL MPV (7.40-12.00) fL Neut % (Auto) (48.0-80.0) % Lymph % (Auto) (16.0-40.0) % Norman % (Auto) (0.0-15.0) % Eos % (Auto) (0.0-7.0) % Baso % (Auto) (0.0-1.5) % Neut # (Auto) (1.4-5.7) K/uL Lymph # (Auto) (0.6-2.4) K/uL Norman # (Auto) (0.0-0.8) K/uL Eos # (Auto) (0.0-0.7) K/uL Baso # (Auto) (0.0-0.1) K/uL Nucleated RBC % /100WBC Nucleated RBCs # K/uL Sodium (136-145) mmol/L Potassium (3.5-5.1) mmol/L Chloride (98-107) mmol/L Carbon Dioxide (21.0-32.0) mmol/L BUN (7.0-18.0) mg/dL Creatinine (0.6-1.0) mg/dL Est Cr Clr Drug Dosing mL/min Estimated GFR (MDRD) ml/min Glucose (74-106) mg/dL Hemoglobin A1c 5.4 (4.5-6.2) % Calcium (8.5-10.1) mg/dL Troponin I 1.242 H* (0.000-0.056) ng/mL Triglycerides (0-200) mg/dL Cholesterol (50-200) mg/dL LDL Cholesterol, Calc (60-180) mg/dL VLDL Cholesterol (5-55) mg/dL HDL Cholesterol (40-60) mg/dL Cholesterol/HDL Ratio (3.3-6.0) Urine Opiates Screen (NEGATIVE) Ur Oxycodone Screen (NEGATIVE) Urine Methadone Screen (NEGATIVE) Ur Barbiturates Screen (NEGATIVE) Ur Phencyclidine Scrn (NEGATIVE) Ur Amphetamine Screen (NEGATIVE) U Methamphetamines Scrn (NEGATIVE) U Benzodiazepines Scrn (NEGATIVE) U Cocaine Metab Screen (NEGATIVE) U Marijuana (THC) Screen (NEGATIVE) Blood Type Antibody Screen Antibody Identification Antigen Typing Crossmatch 02/19/18 Range/Units 05:20 WBC (4.0-11.0) K/uL RBC (4.30-5.90) M/uL Hgb (12.0-16.0) g/dL Hct (36.0-46.0) % MCV (80.0-98.0) fL MCH (27.0-32.0) pg MCHC (31.0-37.0) g/dL RDW Std Deviation (28.0-62.0) fl RDW Coeff of Leland (11.0-15.0) % Plt Count (150-400) K/uL MPV (7.40-12.00) fL Neut % (Auto) (48.0-80.0) % Lymph % (Auto) (16.0-40.0) % Norman % (Auto) (0.0-15.0) % Eos % (Auto) (0.0-7.0) % Baso % (Auto) (0.0-1.5) % Neut # (Auto) (1.4-5.7) K/uL Lymph # (Auto) (0.6-2.4) K/uL Norman # (Auto) (0.0-0.8) K/uL Eos # (Auto) (0.0-0.7) K/uL Baso # (Auto) (0.0-0.1) K/uL Nucleated RBC % /100WBC Nucleated RBCs # K/uL Sodium (136-145) mmol/L Potassium (3.5-5.1) mmol/L Chloride (98-107) mmol/L Carbon Dioxide (21.0-32.0) mmol/L BUN (7.0-18.0) mg/dL Creatinine (0.6-1.0) mg/dL Est Cr Clr Drug Dosing mL/min Estimated GFR (MDRD) ml/min Glucose (74-106) mg/dL Hemoglobin A1c (4.5-6.2) % Calcium (8.5-10.1) mg/dL Troponin I 0.270 H* (0.000-0.056) ng/mL Triglycerides (0-200) mg/dL Cholesterol (50-200) mg/dL LDL Cholesterol, Calc (60-180) mg/dL VLDL Cholesterol (5-55) mg/dL HDL Cholesterol (40-60) mg/dL Cholesterol/HDL Ratio (3.3-6.0) Urine Opiates Screen (NEGATIVE) Ur Oxycodone Screen (NEGATIVE) Urine Methadone Screen (NEGATIVE) Ur Barbiturates Screen (NEGATIVE) Ur Phencyclidine Scrn (NEGATIVE) Ur Amphetamine Screen (NEGATIVE) U Methamphetamines Scrn (NEGATIVE) U Benzodiazepines Scrn (NEGATIVE) U Cocaine Metab Screen (NEGATIVE) U Marijuana (THC) Screen (NEGATIVE) Blood Type Antibody Screen Antibody Identification Antigen Typing Crossmatch Med Orders - Current: Current Medications Al Hydroxide/Mg Hydroxide (Mag-Al Plus) 30 ml PO Q4H PRN PRN Reason: indigestion Aspirin (Aspirin) 325 mg PO BID [facility] Last Admin: 02/19/18 08:04 Dose: 325 mg Bisacodyl (Dulcolax) 10 mg RECTAL DAILY PRN PRN Reason: Constipation Bupivacaine Liposome (Exparel) 20 ml INFILT ASDIRECTED [facility] Docusate Sodium (Colace) 100 mg PO BID [facility] Last Admin: 02/19/18 08:04 Dose: 100 mg Famotidine (Pepcid) 40 mg IVPUSH ONARRIVE [facility] Last Admin: 02/18/18 07:28 Dose: 40 mg Famotidine (Pepcid) 40 mg PO DAILY [facility] Last Admin: 02/19/18 08:04 Dose: 40 mg Gabapentin (Neurontin) 300 mg PO TID [facility] Last Admin: 02/19/18 05:20 Dose: 300 mg Cefazolin Sodium/Dextrose 1 gm (/ Premix) 50 mls @ 100 mls/hr IV ONCALL JOHN Ropivacaine 49.25 ml/Ketorolac Tromethamine 30 mg/Epinephrine HCl 0.5 mg/ Clonidine HCl 80 mcg/ Sodium Chloride 76.55 mls @ 50 mls/sec INJECT ASDIRECTED [facility] Lactated Ringer's (Ringers, Lactated) 1,000 mls @ 100 mls/hr IV ASDIRECTED [facility] Last Admin: 02/18/18 07:15 Dose: 100 mls/hr Tranexamic Acid 4,000 mg/ (Sodium Chloride) 140 mls @ 600 mls/hr IV ASDIRECTED [facility] Phenylephrine HCl 10 mg/ (Sodium Chloride) 100 mls @ 24 mls/hr IV TITRATE [facility]; Protocol Last Titration: 02/18/18 14:00 Dose: 0 mcg/min, 0 mls/hr Lactated Ringer's (Ringers, Lactated) 1,000 mls @ 125 mls/hr IV ASDIRECTED [facility] Last Admin: 02/19/18 04:48 Dose: 125 mls/hr Lisinopril (Prinivil) 10 mg PO DAILY [facility] Last Admin: 02/19/18 08:05 Dose: 10 mg Metoprolol Succinate (Toprol Xl) 50 mg PO QAM [facility] Last Admin: 02/19/18 08:05 Dose: 50 mg Ondansetron HCl (Zofran) 4 mg IV Q6HR PRN PRN Reason: NAUSEA/VOMITING Ipratropium Hines 0.03 Percent Nasal [place] [facility] Last Admin: 02/19/18 08:04 Dose: Not Given Potassium Chloride (Klor-Con M20) 20 meq PO BID [facility] Last Admin: 02/19/18 08:04 Dose: 20 meq Scopolamine (Transderm-Scop) 1.5 mg TRDERM ONARRIVE [facility] Last Admin: 02/18/18 07:35 Dose: 1.5 mg Tramadol HCl (Ultram) 50 - 100 mg PO Q6H PRN PRN Reason: Pain Last Admin: 02/19/18 07:29 Dose: 50 mg Discontinued Medications Aspirin (Ecotrin) 325 mg PO ONETIME ONE Stop: 02/18/18 13:09 Last Admin: 02/18/18 13:57 Dose: 325 mg Atorvastatin Calcium (Lipitor) 80 mg PO ONETIME ONE Stop: 02/18/18 13:10 Last Admin: 02/18/18 14:00 Dose: 80 mg Cefazolin Sodium/Dextrose (Ancef) Confirm Administered Dose 2 gm IV .STK-MED ONE Stop: 02/18/18 07:08 Celecoxib (Celebrex) 200 mg PO BID [facility] Ephedrine Sulfate (Ephedrine Sulfate) Confirm Administered Dose 50 mg .ROUTE .STK-MED ONE Stop: 02/18/18 07:08 Ephedrine Sulfate (Ephedrine Sulfate) Confirm Administered Dose 50 mg .ROUTE .STK-MED ONE Stop: 02/18/18 09:17 Fentanyl (Sublimaze) Confirm Administered Dose 100 mcg .ROUTE .STK-MED ONE Stop: 02/18/18 07:08 Hydromorphone HCl (Dilaudid) 2 mg IVPUSH ONETIME ONE Stop: 02/18/18 10:50 Last Admin: 02/18/18 13:55 Dose: Not Given Acetaminophen 1,000 mg/ Premix 100 mls @ 400 mls/hr IV Q6H [facility] Stop: 02/19/18 01:14 Last Admin: 02/19/18 00:49 Dose: 400 mls/hr Cefazolin Sodium/Dextrose 1 gm (/ Premix) 50 mls @ 100 mls/hr IV Q8H [facility] Stop: 02/19/18 00:29 Last Admin: 02/19/18 00:21 Dose: 100 mls/hr Ketorolac Tromethamine (Toradol) 30 mg IVPUSH ONARRIVE JOHN Last Admin: 02/18/18 07:23 Dose: 30 mg Ketorolac Tromethamine (Toradol) 30 mg IVPUSH Q6H [facility] Stop: 02/19/18 05:00 Last Admin: 02/19/18 00:49 Dose: 30 mg Midazolam HCl (Versed 1 Mg/Ml) Confirm Administered Dose 2 mg .ROUTE .STK-MED ONE Stop: 02/18/18 07:08 Midazolam HCl (Versed 1 Mg/Ml) Confirm Administered Dose 2 mg .ROUTE .STK-MED ONE Stop: 02/18/18 08:33 Morphine Sulfate (Morphine Primary [employer] 30 Mg In 30 Ml) 30 mg IV ASDIRECTED [facility]; Protocol Stop: 02/19/18 08:00 Last Admin: 02/18/18 10:27 Dose: 30 mg Morphine Sulfate (Morphine) 1 - 3 mg IVPUSH Q3H PRN PRN Reason: Pain Ondansetron HCl (Zofran) Confirm Administered Dose 4 mg .ROUTE .STK-MED ONE Stop: 02/18/18 08:21 Oxycodone HCl (Oxycodone) 5 - 10 mg PO Q4H PRN PRN Reason: Pain Stop: 02/19/18 08:00 Last Admin: 02/19/18 05:21 Dose: 10 mg Oxycodone/Acetaminophen (Percocet 325-5 Mg) 1 - 2 tab PO Q4H PRN PRN Reason: Pain Phenylephrine HCl (Phenylephrine In Ns 100 Mcg/Ml) Confirm Administered Dose 1 mg .ROUTE .STK-MED ONE Stop: 02/18/18 07:08 Promethazine HCl (Phenergan) 25 mg IM ONETIME ONE Stop: 02/18/18 10:50 Last Admin: 02/18/18 13:56 Dose: Not Given Propofol (Diprivan 20 Ml) Confirm Administered Dose 600 mg .ROUTE .STK-MED ONE Stop: 02/18/18 07:13 Tranexamic Acid (Cyklokapron) Confirm Administered Dose 4,000 mg .ROUTE .STK- MED ONE Stop: 02/18/18 07:17 - Exam Wound/Incisions: Dressing Dry and Intact. No: Erythema Quality Assessment: Urine Catheter. No: Supplemental Oxygen General: Alert, Oriented, Cooperative HEENT: Mucous Membr. Moist/[place] Neck: Supple Lungs: Normal Respiratory Effort Cardiovascular: Regular Rate, Regular Rhythm GI/Abdominal Exam: Soft, Non-Tender Extremities: Normal Inspection, No Pedal Edema, Normal Capillary Refill, Other ( intact dorsiflextion and foot eversion. No paresthesias in the foot. Knee ROM not tested.). No: Redness Skin: Warm, Dry, Intact Neurological: No New Focal Deficit Psy/Mental Status: Alert, Normal Affect, Normal Mood - Problem List Review Problem List Initiated/Reviewed/Updated: Yes - My Orders Last 24 Hours: Active Orders 24 hr Category Date Time Status Dressing Change [Wound Care] [RC] ASDIRECTED Care 02/18/18 09:57 Active Insert Urinary Catheter [OM.PC] Q24H Care 02/18/18 08:00 Ordered Intake and Output [RC] ASDIRECTED Care 02/18/18 09:57 Active Neurovascular Check [RC] Q2HR Care 02/18/18 09:57 Active RT Incentive Spirometry [RC] ASDIRECTED Care 02/18/18 09:57 Active Remove Butts Catheter [Urinary Catheter Removal] [RC] Care 02/19/18 08:14 Active Per Unit Routine Vital Signs [RC] Q1H Care 02/18/18 09:57 Active Consult to Physician [CONS] Routine Cons 02/18/18 13:27 Active PT Evaluation and Treatment [CONS] Routine Cons 02/18/18 09:57 Active Echo Comp wo Cont [US] Stat Exams 02/18/18 13:07 Taken HEMOGLOBIN/HEMATOCRIT,HH [HEME] DAILY Lab 02/20/18 06:00 Ordered HEMOGLOBIN/HEMATOCRIT,HH [HEME] DAILY Lab 02/21/18 06:00 Ordered RED BLOOD CELLS LP [BBK] Routine Lab 02/18/18 07:45 Results Alum Hydrox/Mag Hydrox/Simeth [Mag-Al Plus] Med 02/18/18 09:58 Active 30 ml PO Q4H PRN Aspirin Med 02/19/18 09:00 Active 325 mg PO BID Bisacodyl [Dulcolax] Med 02/18/18 09:58 Active 10 mg RECTAL DAILY PRN Bupivacaine Liposome/PF [Exparel] Med 02/18/18 08:00 Hold 20 ml INFILT ASDIRECTED Docusate Sodium [Colace] Med 02/18/18 21:00 Active 100 mg PO BID Famotidine [Pepcid] Med 02/19/18 09:00 Active 40 mg PO DAILY Gabapentin [Neurontin] Med 02/18/18 14:00 Active 300 mg PO TID Lactated Ringers [Ringers, Lactated] 1,000 ml Med 02/18/18 13:15 Active IV ASDIRECTED Lisinopril [Prinivil] Med 02/19/18 09:00 Active 10 mg PO DAILY Metoprolol Succinate [Toprol XL] Med 02/19/18 09:00 Active 50 mg PO QAM Ondansetron [Zofran] Med 02/18/18 09:57 Active 4 mg IV Q6HR PRN Patient's Own Medication [Ptom] Med 02/19/18 09:00 Active 1 each NASBOTH QAM Phenylephrine [Jose-Synephrine] 10 mg Med 02/18/18 11:00 Active Sodium Chloride 0.9% [Normal Saline] 99 ml IV TITRATE Potassium Chloride [Klor-Con M20] Med 02/18/18 21:00 Active 20 meq PO BID Ropivacaine [Naropin 0.2%] 49.25 ml Med 02/18/18 08:00 Active Ketorolac [Toradol] 30 mg EPINEPHrine [Adrenalin] 0.5 mg cloNIDine [Duraclon] 80 mcg Sodium Chloride 0.9% [Normal Saline] 25 ml INJECT ASDIRECTED Tranexamic Acid [Cyklokapron] 4,000 mg Med 02/18/18 08:00 Active Sodium Chloride 0.9% [Normal Saline] 100 ml IV ASDIRECTED ceFAZolin [Ancef] 1 gm Med 02/18/18 08:00 Active Premix Bag 1 bag IV ONCALL traMADol [Ultram] Med 02/18/18 09:58 Active 50 - 100 mg PO Q6H PRN Ice Therapy [OM.PC] Routine Oth 02/18/18 09:57 Ordered Medication Orders Al Hydroxide/Mg Hydroxide (Mag-Al Plus) 30 ml PO Q4H PRN PRN Reason: indigestion Aspirin (Aspirin) 325 mg PO BID JOHN Last Admin: 08/28/18 08:04 Dose: 325 mg Bisacodyl (Dulcolax) 10 mg RECTAL DAILY PRN PRN Reason: Constipation Bupivacaine Liposome (Exparel) 20 ml INFILT ASDIRECTED [facility] Docusate Sodium (Colace) 100 mg PO BID [facility] Last Admin: 02/19/18 08:04 Dose: 100 mg Admin: 02/18/18 20:07 Dose: 100 mg Famotidine (Pepcid) 40 mg IVPUSH ONARRIVE [facility] Last Admin: 02/18/18 07:28 Dose: 40 mg Famotidine (Pepcid) 40 mg PO DAILY [facility] Last Admin: 02/19/18 08:04 Dose: 40 mg Gabapentin (Neurontin) 300 mg PO TID [facility] Last Admin: 02/19/18 05:20 Dose: 300 mg Admin: 02/18/18 21:09 Dose: 300 mg Admin: 02/18/18 14:00 Dose: 300 mg Cefazolin Sodium/Dextrose 1 gm (/ Premix) 50 mls @ 100 mls/hr IV ONCALL [facility] Ropivacaine 49.25 ml/Ketorolac Tromethamine 30 mg/Epinephrine HCl 0.5 mg/ Clonidine HCl 80 mcg/ Sodium Chloride 76.55 mls @ 50 mls/sec INJECT ASDIRECTED [facility] Lactated Ringer's (Ringers, Lactated) 1,000 mls @ 100 mls/hr IV ASDIRECTED [facility] Last Admin: 02/18/18 07:15 Dose: 100 mls/hr Tranexamic Acid 4,000 mg/ (Sodium Chloride) 140 mls @ 600 mls/hr IV ASDIRECTED [facility] Phenylephrine HCl 10 mg/ (Sodium Chloride) 100 mls @ 24 mls/hr IV TITRATE [facility]; Protocol Last Titration: 02/18/18 14:00 Dose: 0 mcg/min, 0 mls/hr Admin: 02/18/18 13:30 Dose: 15 mcg/min, 9 mls/hr Lactated Ringer's (Ringers, Lactated) 1,000 mls @ 125 mls/hr IV ASDIRECTED [facility] Last Admin: 02/19/18 04:48 Dose: 125 mls/hr Lisinopril (Prinivil) 10 mg PO DAILY [facility] Last Admin: 02/19/18 08:05 Dose: 10 mg Metoprolol Succinate (Toprol Xl) 50 mg PO QAM [facility] Last Admin: 02/19/18 08:05 Dose: 50 mg Ondansetron HCl (Zofran) 4 mg IV Q6HR PRN PRN Reason: NAUSEA/VOMITING Ipratropium Hines 0.03 Percent Nasal [place] 1 each NASBOTH QAM [facility] Last Admin: 02/19/18 08:04 Dose: Potassium Chloride (Klor-Con M20) 20 meq PO BID [facility] Last Admin: 02/19/18 08:04 Dose: 20 meq Admin: 02/18/18 20:07 Dose: 20 meq Scopolamine (Transderm-Scop) 1.5 mg TRDERM ONARRIVE [facility] Last Admin: 02/18/18 07:35 Dose: 1.5 mg Tramadol HCl (Ultram) 50 - 100 mg PO Q6H PRN PRN Reason: Pain Last Admin: 02/19/18 07:29 Dose: 50 mg Admin: 02/18/18 22:26 Dose: 50 mg - Assessment Assessment (Free Text/Narrative):: 52 y/o F POD #1 s/p L TKA. Post-operatively she developed chest pain, hypotension, and elevated troponins, thought to be due to demand ischemia. Medicine has been consulted; her chest pain is resolved. She had left foot numbness post-op; this has also resolved. The numbness was likely due to the local anesthetic. Overall the patient is improving. - Plan Plan (Free Text/Narrative):: Consider transfer out of ICU Regular diet Ambulate with assistance Make sure she voids spontaneously now that butts is out. Fluids and electrolytes per IM <Sherin Xavier R - Last Filed: 02/19/18 23:59> - Patient Data Vitals - Most Recent: Last Vital Signs Temp 98.8 F 02/19/18 20:50 Pulse 72 02/19/18 20:50 Resp 18 02/19/18 20:50 BP 150/100 H 02/19/18 20:50 Pulse Ox 90 L 02/19/18 20:50 I&O - Last 24 Hours: Intake & Output 02/19/18 02/19/18 02/20/18 14:59 22:59 06:59 Intake Total 625 625 Output Total 200 400 Balance 425 225 Lab Results Last 24 Hrs: Laboratory Results - last 24 hr 02/19/18 02/19/18 Range/Units 05:20 05:20 Hgb 9.6 L (12.0-16.0) g/dL Hct 30.7 L (36.0-46.0) % Troponin I 0.270 H* (0.000-0.056) ng/mL Med Orders - Current: Current Medications Al Hydroxide/Mg Hydroxide (Mag-Al Plus) 30 ml PO Q4H PRN PRN Reason: indigestion Aspirin (Aspirin) 325 mg PO BID [facility] Last Admin: 02/19/18 21:06 Dose: 325 mg Bisacodyl (Dulcolax) 10 mg RECTAL DAILY PRN PRN Reason: Constipation Bupivacaine Liposome (Exparel) 20 ml INFILT ASDIRECTED [facility] Docusate Sodium (Colace) 100 mg PO BID [facility] Last Admin: 02/19/18 21:06 Dose: 100 mg Famotidine (Pepcid) 40 mg IVPUSH ONARRIVE [facility] Last Admin: 02/18/18 07:28 Dose: 40 mg Famotidine (Pepcid) 40 mg PO DAILY [facility] Last Admin: 02/19/18 08:04 Dose: 40 mg Gabapentin (Neurontin) 300 mg PO TID [facility] Last Admin: 02/19/18 21:56 Dose: 300 mg Hydromorphone HCl (Dilaudid) 0.5 - 1 mg IVPUSH Q3H PRN PRN Reason: Pain Last Admin: 02/19/18 20:40 Dose: 1 mg Cefazolin Sodium/Dextrose 1 gm (/ Premix) 50 mls @ 100 mls/hr IV ONCALL [facility] Ropivacaine 49.25 ml/Ketorolac Tromethamine 30 mg/Epinephrine HCl 0.5 mg/ Clonidine HCl 80 mcg/ Sodium Chloride 76.55 mls @ 50 mls/sec INJECT ASDIRECTED [facility] Tranexamic Acid 4,000 mg/ (Sodium Chloride) 140 mls @ 600 mls/hr IV ASDIRECTED [facility] Phenylephrine HCl 10 mg/ (Sodium Chloride) 100 mls @ 24 mls/hr IV TITRATE [facility]; Protocol Last Titration: 02/18/18 14:00 Dose: 0 mcg/min, 0 mls/hr Lactated Ringer's (Ringers, Lactated) 1,000 mls @ 125 mls/hr IV ASDIRECTED [facility] Last Admin: 02/19/18 04:48 Dose: 125 mls/hr Lisinopril (Prinivil) 10 mg PO DAILY [facility] Last Admin: 02/19/18 08:05 Dose: 10 mg Metoprolol Succinate (Toprol Xl) 50 mg PO QAM [facility] Last Admin: 02/19/18 08:05 Dose: 50 mg Ondansetron HCl (Zofran) 4 mg IV Q6HR PRN PRN Reason: NAUSEA/VOMITING Oxycodone/Acetaminophen (Percocet 325-10 Mg) 1 - 2 tab PO Q4H PRN PRN Reason: Pain Last Admin: 02/19/18 19:37 Dose: 2 tab Ipratropium [place] 0.03 Percent Nasal [place] 1 each NASBOTH QAM [facility] Last Admin: 02/19/18 08:04 Dose: Not Given Potassium Chloride (Klor-Con M20) 20 meq PO BID [facility] Last Admin: 02/19/18 21:06 Dose: 20 meq Scopolamine (Transderm-Scop) 1.5 mg TRDERM ONARRIVE [facility] Last Admin: 02/18/18 07:35 Dose: 1.5 mg Tramadol HCl (Ultram) 50 - 100 mg PO Q6H PRN PRN Reason: Pain Last Admin: 02/19/18 22:04 Dose: 100 mg Discontinued Medications Aspirin (Ecotrin) 325 mg PO ONETIME ONE Stop: 02/18/18 13:09 Last Admin: 02/18/18 13:57 Dose: 325 mg Atorvastatin Calcium (Lipitor) 80 mg PO ONETIME ONE Stop: 02/18/18 13:10 Last Admin: 02/18/18 14:00 Dose: 80 mg Atorvastatin Calcium (Lipitor) 80 mg PO ONETIME ONE Stop: 02/19/18 09:15 Last Admin: 02/19/18 10:49 Dose: 80 mg Cefazolin Sodium/Dextrose (Ancef) Confirm Administered Dose 2 gm IV .STK-MED ONE Stop: 02/18/18 07:08 Celecoxib (Celebrex) 200 mg PO BID [facility] Ephedrine Sulfate (Ephedrine Sulfate) Confirm Administered Dose 50 mg .ROUTE .STK-MED ONE Stop: 02/18/18 07:08 Ephedrine Sulfate (Ephedrine Sulfate) Confirm Administered Dose 50 mg .ROUTE .STK-MED ONE Stop: 02/18/18 09:17 Fentanyl (Sublimaze) Confirm Administered Dose 100 mcg .ROUTE .STK-MED ONE Stop: 02/18/18 07:08 Hydromorphone HCl (Dilaudid) 2 mg IVPUSH ONETIME ONE Stop: 02/18/18 10:50 Last Admin: 02/18/18 13:55 Dose: Not Given Hydromorphone HCl (Dilaudid) 1 mg IVPUSH ONETIME ONE Stop: 02/19/18 09:08 Last Admin: 02/19/18 09:13 Dose: 1 mg Lactated Ringer's (Ringers, Lactated) 1,000 mls @ 100 mls/hr IV ASDIRECTED [facility] Last Admin: 02/18/18 07:15 Dose: 100 mls/hr Acetaminophen 1,000 mg/ Premix 100 mls @ 400 mls/hr IV Q6H [facility] Stop: 02/19/18 01:14 Last Admin: 02/19/18 00:49 Dose: 400 mls/hr Cefazolin Sodium/Dextrose 1 gm (/ Premix) 50 mls @ 100 mls/hr IV Q8H [facility] Stop: 02/19/18 00:29 Last Admin: 02/19/18 00:21 Dose: 100 mls/hr Ketorolac Tromethamine (Toradol) 30 mg IVPUSH [facility] Last Admin: 02/18/18 07:23 Dose: 30 mg Ketorolac Tromethamine (Toradol) 30 mg IVPUSH Q6H [facility] Stop: 02/19/18 05:00 Last Admin: 02/19/18 00:49 Dose: 30 mg Metoprolol Succinate (Toprol Xl) 50 mg PO DAILY [facility] Last Admin: 02/19/18 11:04 Dose: Not Given Midazolam HCl (Versed 1 Mg/Ml) Confirm Administered Dose 2 mg .ROUTE .STK-MED ONE Stop: 02/18/18 07:08 Midazolam HCl (Versed 1 Mg/Ml) Confirm Administered Dose 2 mg .ROUTE .STK-MED ONE Stop: 02/18/18 08:33 Morphine Sulfate (Morphine Primary [employer] 30 Mg In 30 Ml) 30 mg IV ASDIRECTED [facility]; Protocol Stop: 02/19/18 08:00 Last Admin: 02/18/18 10:27 Dose: 30 mg Morphine Sulfate (Morphine) 1 - 3 mg IVPUSH Q3H PRN PRN Reason: Pain Ondansetron HCl (Zofran) Confirm Administered Dose 4 mg .ROUTE .STK-MED ONE Stop: 02/18/18 08:21 Oxycodone HCl (Oxycodone) 5 - 10 mg PO Q4H PRN PRN Reason: Pain Stop: 02/19/18 08:00 Last Admin: 02/19/18 05:21 Dose: 10 mg Oxycodone HCl (Oxycodone) 5 - 10 mg PO Q4H PRN PRN Reason: Pain Last Admin: 02/19/18 08:54 Dose: 10 mg Oxycodone/Acetaminophen (Percocet 325-5 Mg) 1 - 2 tab PO Q4H PRN PRN Reason: Pain Phenylephrine HCl (Phenylephrine In Ns 100 Mcg/Ml) Confirm Administered Dose 1 mg .ROUTE .STK-MED ONE Stop: 02/18/18 07:08 Promethazine HCl (Phenergan) 25 mg IM ONETIME ONE Stop: 02/18/18 10:50 Last Admin: 02/18/18 13:56 Dose: Not Given Propofol (Diprivan 20 Ml) Confirm Administered Dose 600 mg .ROUTE .STK-MED ONE Stop: 02/18/18 07:13 Tranexamic Acid (Cyklokapron) Confirm Administered Dose 4,000 mg .ROUTE .STK- MED ONE Stop: 02/18/18 07:17 - My Orders Last 24 Hours: Active Orders 24 hr Category Date Time Status Transfer Patient (Change bed) [ADT] Routine ADT 02/19/18 18:57 Ordered EKG 12 Lead [EKG Documentation Completion] [] STAT Care 02/19/18 10:35 Inactive Remove Butts Catheter [Urinary Catheter Removal] [RC] Care 02/19/18 08:14 Active Per Unit Routine CBC WITH AUTO DIFF [HEME] AM Lab 02/20/18 05:11 Ordered COMPREHENSIVE METABOLIC PN,CMP [CHEM] AM Lab 02/20/18 05:11 Ordered FERRITIN [CHEM] AM Lab 02/20/18 05:11 Ordered HEMOGLOBIN/HEMATOCRIT,HH [HEME] DAILY Lab 02/20/18 06:00 Ordered HEMOGLOBIN/HEMATOCRIT,HH [HEME] DAILY Lab 02/21/18 06:00 Ordered IRON/TIBC [CHEM] AM Lab 02/20/18 05:11 Ordered OCCULT BLOOD DIAGNOSTIC [OP] Routine Lab 02/19/18 23:52 Ordered VITAMIN B12 [CHEM] AM Lab 02/20/18 05:11 Ordered Acetaminophen/oxyCODONE [Percocet 325-10 MG] Med 02/19/18 09:07 Active 1 - 2 tab PO Q4H PRN Aspirin Med 02/19/18 09:00 Active 325 mg PO BID Famotidine [Pepcid] Med 02/19/18 09:00 Active 40 mg PO DAILY HYDROmorphone [Dilaudid] Med 02/19/18 09:56 Active 0.5 - 1 mg IVPUSH Q3H PRN Lisinopril [Prinivil] Med 02/19/18 09:00 Active 10 mg PO DAILY Metoprolol Succinate [Toprol XL] Med 02/19/18 09:00 Active 50 mg PO QAM Patient's Own Medication [Ptom] Med 02/19/18 09:00 Active 1 each NASBOTH QAM Medication Orders Al Hydroxide/Mg Hydroxide (Mag-Al Plus) 30 ml PO Q4H PRN PRN Reason: indigestion Aspirin (Aspirin) 325 mg PO BID [facility] Last Admin: 02/19/18 21:06 Dose: 325 mg Admin: 02/19/18 08:04 Dose: 325 mg Bisacodyl (Dulcolax) 10 mg RECTAL DAILY PRN PRN Reason: Constipation Bupivacaine Liposome (Exparel) 20 ml INFILT ASDIRECTED [facility] Docusate Sodium (Colace) 100 mg PO BID [facility] Last Admin: 02/19/18 21:06 Dose: 100 mg Admin: 02/19/18 08:04 Dose: 100 mg Admin: 02/18/18 20:07 Dose: 100 mg Famotidine (Pepcid) 40 mg IVPUSH [facility] Last Admin: 02/18/18 07:28 Dose: 40 mg Famotidine (Pepcid) 40 mg PO DAILY [facility] Last Admin: 02/19/18 08:04 Dose: 40 mg Gabapentin (Neurontin) 300 mg PO TID [facility] Last Admin: 02/19/18 21:56 Dose: 300 mg Admin: 02/19/18 13:40 Dose: 300 mg Admin: 02/19/18 05:20 Dose: 300 mg Admin: 02/18/18 21:09 Dose: 300 mg Admin: 02/18/18 14:00 Dose: 300 mg Hydromorphone HCl (Dilaudid) 0.5 - 1 mg IVPUSH Q3H PRN PRN Reason: Pain Last Admin: 02/19/18 20:40 Dose: 1 mg Admin: 02/19/18 17:53 Dose: 1 mg Admin: 02/19/18 10:48 Dose: 1 mg Cefazolin Sodium/Dextrose 1 gm (/ Premix) 50 mls @ 100 mls/hr IV ONCALL JOHN Ropivacaine 49.25 ml/Ketorolac Tromethamine 30 mg/Epinephrine HCl 0.5 mg/ Clonidine HCl 80 mcg/ Sodium Chloride 76.55 mls @ 50 mls/sec INJECT ASDIRECTED JOHN Tranexamic Acid 4,000 mg/ (Sodium Chloride) 140 mls @ 600 mls/hr IV ASDIRECTED JOHN Phenylephrine HCl 10 mg/ (Sodium Chloride) 100 mls @ 24 mls/hr IV TITRATE JOHN; Protocol Last Titration: 02/18/18 14:00 Dose: 0 mcg/min, 0 mls/hr Admin: 02/18/18 13:30 Dose: 15 mcg/min, 9 mls/hr Lactated Ringer's (Ringers, Lactated) 1,000 mls @ 125 mls/hr IV ASDIRECTED JOHN Last Admin: 02/19/18 04:48 Dose: 125 mls/hr Lisinopril (Prinivil) 10 mg PO DAILY [facility] Last Admin: 02/19/18 08:05 Dose: 10 mg Metoprolol Succinate (Toprol Xl) 50 mg PO QAM [facility] Last Admin: 02/19/18 08:05 Dose: 50 mg Ondansetron HCl (Zofran) 4 mg IV Q6HR PRN PRN Reason: NAUSEA/VOMITING Oxycodone/Acetaminophen (Percocet 325-10 Mg) 1 - 2 tab PO Q4H PRN PRN Reason: Pain Last Admin: 02/19/18 19:37 Dose: 2 tab Admin: 02/19/18 15:18 Dose: 2 tab Admin: 02/19/18 11:43 Dose: 2 tab Ipratropium [place] 0.03 Percent Nasal [place] 1 each NASBOTH QAM [facility] Last Admin: 02/19/18 08:04 Dose: Potassium Chloride (Klor-Con M20) 20 meq PO BID [facility] Last Admin: 02/19/18 21:06 Dose: 20 meq Admin: 02/19/18 08:04 Dose: 20 meq Admin: 02/18/18 20:07 Dose: 20 meq Scopolamine (Transderm-Scop) 1.5 mg TRDERM [facility] Last Admin: 02/18/18 07:35 Dose: 1.5 mg Tramadol HCl (Ultram) 50 - 100 mg PO Q6H PRN PRN Reason: Pain Last Admin: 02/19/18 22:04 Dose: 100 mg Admin: 02/19/18 13:39 Dose: 100 mg Admin: 02/19/18 07:29 Dose: 50 mg Admin: 02/18/18 22:26 Dose: 50 mg - Plan Plan (Free Text/Narrative):: Patient seen and examined at 1730. Agree with above note. Patient has been OOB. Pain better controlled now. Currently on Percocet 10/325 with Dilaudid for breakthrough pain. Emphasized use of po medication. No further episodes of CP or SOB. Vitals have been stable. Hgb stable. Dressing dry/intact. Yesterday had some paresthesias in the peroneal nerve distribution, resolved today. No calf TTP. AT/EHL/gastroc 5/5. Sensation intact. DP 2+ POD #1 1. ok from ortho standpoint to return to med/surg floor 2. continue PT 3. ASA/SCD/JOMAR hose for DVT prophylaxis 4. continue current pain management 5. plan for probably discharge home tomorrow rrk
[2018-02-19] MEDS ORDERED: oxyCODONE 5 MG Tab PO PRN (08:43)
[2018-02-19] MEDS ORDERED: Celecoxib 100 MG Cap PO SCH (09:00)
[2018-02-19] MEDS ORDERED: HYDROmorphone 1 MG/ML Syringe IVPUSH ONE (09:07)
[2018-02-19] MEDS ORDERED: atorvaSTATin 40 MG Tab PO ONE (09:14)
[2018-02-19] MEDS ORDERED: Metoprolol Succinate 50 MG Tab.ER PO SCH (09:15)
--- NOTE | 2018-02-19 09:54 | PCM.SURGPN ---
- General Info Date of Service: 02/19/18 Date of Surgery/Procedure: 02/18/18 POD#: 1 Functional Status: Reports: Tolerating Diet. Denies: Pain Controlled, Ambulating - Review of Systems General: Reports: No Symptoms Pulmonary: Reports: No Symptoms. Denies: Shortness of Breath Cardiovascular: Reports: No Symptoms. Denies: Chest Pain, Palpitations, Lightheadedness Gastrointestinal: Reports: No Symptoms, Nausea. Denies: Vomiting Musculoskeletal: Reports: Leg Pain Systems Review Comment:: pt up to chair for breakfast tolerating PO intake some nausea with narcotics pain control marginally adequate, but pt sensitive/nausea with narcotics distal post-op paresthesias improved able to ambulate short distances no recurrence of chest pain/substernal chest pressure - Patient Data Vitals - Most Recent: Last Vital Signs Temp 98.8 F 02/19/18 08:00 Pulse 77 02/19/18 08:05 Resp 16 02/19/18 08:00 BP 139/88 02/19/18 08:05 Pulse Ox 97 02/19/18 08:00 Weight - Most Recent: 63.503 kg I&O - Last 24 Hours: Intake & Output 02/18/18 02/19/18 02/19/18 22:59 06:59 14:59 Intake Total 1410 1947 Output Total 400 1300 200 Balance 1010 647 -200 Lab Results Last 24 Hrs: Laboratory Results - last 24 hr 02/18/18 02/18/18 02/18/18 Range/Units 06:00 07:45 07:45 WBC (4.0-11.0) K/uL RBC (4.30-5.90) M/uL Hgb (12.0-16.0) g/dL Hct (36.0-46.0) % MCV (80.0-98.0) fL MCH (27.0-32.0) pg MCHC (31.0-37.0) g/dL RDW Std Deviation (28.0-62.0) fl RDW Coeff of [place] (11.0-15.0) % Plt Count (150-400) K/uL MPV (7.40-12.00) fL Neut % (Auto) (48.0-80.0) % Lymph % (Auto) (16.0-40.0) % [place] % (Auto) (0.0-15.0) % Eos % (Auto) (0.0-7.0) % Baso % (Auto) (0.0-1.5) % Neut # (Auto) (1.4-5.7) K/uL Lymph # (Auto) (0.6-2.4) K/uL [place] # (Auto) (0.0-0.8) K/uL Eos # (Auto) (0.0-0.7) K/uL Baso # (Auto) (0.0-0.1) K/uL Nucleated RBC % /100WBC Nucleated RBCs # K/uL Sodium (136-145) mmol/L Potassium (3.5-5.1) mmol/L Chloride (98-107) mmol/L Carbon Dioxide (21.0-32.0) mmol/L BUN (7.0-18.0) mg/dL Creatinine (0.6-1.0) mg/dL Est Cr Clr Drug Dosing mL/min Estimated GFR (MDRD) ml/min Glucose (74-106) mg/dL Hemoglobin A1c (4.5-6.2) % Calcium (8.5-10.1) mg/dL Troponin I (0.000-0.056) ng/mL Triglycerides (0-200) mg/dL Cholesterol (50-200) mg/dL LDL Cholesterol, Calc (60-180) mg/dL VLDL Cholesterol (5-55) mg/dL HDL Cholesterol (40-60) mg/dL Cholesterol/HDL Ratio (3.3-6.0) Urine Opiates Screen NEGATIVE (NEGATIVE) Ur Oxycodone Screen NEGATIVE (NEGATIVE) Urine Methadone Screen NEGATIVE (NEGATIVE) Ur Barbiturates Screen NEGATIVE (NEGATIVE) Ur Phencyclidine Scrn NEGATIVE (NEGATIVE) Ur Amphetamine Screen NEGATIVE (NEGATIVE) U Methamphetamines Scrn NEGATIVE (NEGATIVE) U Benzodiazepines Scrn NEGATIVE (NEGATIVE) U Cocaine Metab Screen NEGATIVE (NEGATIVE) U Marijuana (THC) Screen NEGATIVE (NEGATIVE) Blood Type B POSITIVE Antibody Screen POSITIVE Antibody Identification Anti-K Antigen Typing K Antigen - NEGATIVE Crossmatch See Detail 02/18/18 02/18/18 02/18/18 Range/Units 10:55 10:55 10:55 WBC 9.03 (4.0-11.0) K/uL RBC 3.59 L (4.30-5.90) M/uL Hgb 11.1 L (12.0-16.0) g/dL Hct 35.2 L (36.0-46.0) % MCV 98.1 H (80.0-98.0) fL MCH 30.9 (27.0-32.0) pg MCHC 31.5 (31.0-37.0) g/dL RDW Std Deviation 59.2 (28.0-62.0) fl RDW Coeff of [place] 16 H (11.0-15.0) % Plt Count 166 (150-400) K/uL MPV 9.10 (7.40-12.00) fL Neut % (Auto) 74.6 (48.0-80.0) % Lymph % (Auto) 16.1 (16.0-40.0) % [place] % (Auto) 6.9 (0.0-15.0) % Eos % (Auto) 2.1 (0.0-7.0) % Baso % (Auto) 0.3 (0.0-1.5) % Neut # (Auto) 6.7 H (1.4-5.7) K/uL Lymph # (Auto) 1.5 (0.6-2.4) K/uL [place] # (Auto) 0.6 (0.0-0.8) K/uL Eos # (Auto) 0.2 (0.0-0.7) K/uL Baso # (Auto) 0.0 (0.0-0.1) K/uL Nucleated RBC % 0.0 /100WBC Nucleated RBCs # 0 K/uL Sodium 137 (136-145) mmol/L Potassium 3.8 (3.5-5.1) mmol/L Chloride 104 (98-107) mmol/L Carbon Dioxide 30.4 (21.0-32.0) mmol/L BUN 15 (7.0-18.0) mg/dL Creatinine 1.0 (0.6-1.0) mg/dL Est Cr Clr Drug Dosing 59.89 mL/min Estimated GFR (MDRD) 58.5 ml/min Glucose 120 H (74-106) mg/dL Hemoglobin A1c (4.5-6.2) % Calcium 8.2 L (8.5-10.1) mg/dL Troponin I 0.519 H* (0.000-0.056) ng/mL Triglycerides 62 (0-200) mg/dL Cholesterol 129 (50-200) mg/dL LDL Cholesterol, Calc 51 L (60-180) mg/dL VLDL Cholesterol 12 (5-55) mg/dL HDL Cholesterol 66 H (40-60) mg/dL Cholesterol/HDL Ratio 2.0 L (3.3-6.0) Urine Opiates Screen (NEGATIVE) Ur Oxycodone Screen (NEGATIVE) Urine Methadone Screen (NEGATIVE) Ur Barbiturates Screen (NEGATIVE) Ur Phencyclidine Scrn (NEGATIVE) Ur Amphetamine Screen (NEGATIVE) U Methamphetamines Scrn (NEGATIVE) U Benzodiazepines Scrn (NEGATIVE) U Cocaine Metab Screen (NEGATIVE) U Marijuana (THC) Screen (NEGATIVE) Blood Type Antibody Screen Antibody Identification Antigen Typing Crossmatch 02/18/18 02/18/18 02/19/18 Range/Units 10:55 13:24 05:20 WBC (4.0-11.0) K/uL RBC (4.30-5.90) M/uL Hgb 9.6 L (12.0-16.0) g/dL Hct 30.7 L (36.0-46.0) % MCV (80.0-98.0) fL MCH (27.0-32.0) pg MCHC (31.0-37.0) g/dL RDW Std Deviation (28.0-62.0) fl RDW Coeff of [place] (11.0-15.0) % Plt Count (150-400) K/uL MPV (7.40-12.00) fL Neut % (Auto) (48.0-80.0) % Lymph % (Auto) (16.0-40.0) % [place] % (Auto) (0.0-15.0) % Eos % (Auto) (0.0-7.0) % Baso % (Auto) (0.0-1.5) % Neut # (Auto) (1.4-5.7) K/uL Lymph # (Auto) (0.6-2.4) K/uL [place] # (Auto) (0.0-0.8) K/uL Eos # (Auto) (0.0-0.7) K/uL Baso # (Auto) (0.0-0.1) K/uL Nucleated RBC % /100WBC Nucleated RBCs # K/uL Sodium (136-145) mmol/L Potassium (3.5-5.1) mmol/L Chloride (98-107) mmol/L Carbon Dioxide (21.0-32.0) mmol/L BUN (7.0-18.0) mg/dL Creatinine (0.6-1.0) mg/dL Est Cr Clr Drug Dosing mL/min Estimated GFR (MDRD) ml/min Glucose (74-106) mg/dL Hemoglobin A1c 5.4 (4.5-6.2) % Calcium (8.5-10.1) mg/dL Troponin I 1.242 H* (0.000-0.056) ng/mL Triglycerides (0-200) mg/dL Cholesterol (50-200) mg/dL LDL Cholesterol, Calc (60-180) mg/dL VLDL Cholesterol (5-55) mg/dL HDL Cholesterol (40-60) mg/dL Cholesterol/HDL Ratio (3.3-6.0) Urine Opiates Screen (NEGATIVE) Ur Oxycodone Screen (NEGATIVE) Urine Methadone Screen (NEGATIVE) Ur Barbiturates Screen (NEGATIVE) Ur Phencyclidine Scrn (NEGATIVE) Ur Amphetamine Screen (NEGATIVE) U Methamphetamines Scrn (NEGATIVE) U Benzodiazepines Scrn (NEGATIVE) U Cocaine Metab Screen (NEGATIVE) U Marijuana (THC) Screen (NEGATIVE) Blood Type Antibody Screen Antibody Identification Antigen Typing Crossmatch 02/19/18 Range/Units 05:20 WBC (4.0-11.0) K/uL RBC (4.30-5.90) M/uL Hgb (12.0-16.0) g/dL Hct (36.0-46.0) % MCV (80.0-98.0) fL MCH (27.0-32.0) pg MCHC (31.0-37.0) g/dL RDW Std Deviation (28.0-62.0) fl RDW Coeff of [place] (11.0-15.0) % Plt Count (150-400) K/uL MPV (7.40-12.00) fL Neut % (Auto) (48.0-80.0) % Lymph % (Auto) (16.0-40.0) % [place] % (Auto) (0.0-15.0) % Eos % (Auto) (0.0-7.0) % Baso % (Auto) (0.0-1.5) % Neut # (Auto) (1.4-5.7) K/uL Lymph # (Auto) (0.6-2.4) K/uL [place] # (Auto) (0.0-0.8) K/uL Eos # (Auto) (0.0-0.7) K/uL Baso # (Auto) (0.0-0.1) K/uL Nucleated RBC % /100WBC Nucleated RBCs # K/uL Sodium (136-145) mmol/L Potassium (3.5-5.1) mmol/L Chloride (98-107) mmol/L Carbon Dioxide (21.0-32.0) mmol/L BUN (7.0-18.0) mg/dL Creatinine (0.6-1.0) mg/dL Est Cr Clr Drug Dosing mL/min Estimated GFR (MDRD) ml/min Glucose (74-106) mg/dL Hemoglobin A1c (4.5-6.2) % Calcium (8.5-10.1) mg/dL Troponin I 0.270 H* (0.000-0.056) ng/mL Triglycerides (0-200) mg/dL Cholesterol (50-200) mg/dL LDL Cholesterol, Calc (60-180) mg/dL VLDL Cholesterol (5-55) mg/dL HDL Cholesterol (40-60) mg/dL Cholesterol/HDL Ratio (3.3-6.0) Urine Opiates Screen (NEGATIVE) Ur Oxycodone Screen (NEGATIVE) Urine Methadone Screen (NEGATIVE) Ur Barbiturates Screen (NEGATIVE) Ur Phencyclidine Scrn (NEGATIVE) Ur Amphetamine Screen (NEGATIVE) U Methamphetamines Scrn (NEGATIVE) U Benzodiazepines Scrn (NEGATIVE) U Cocaine Metab Screen (NEGATIVE) U Marijuana (THC) Screen (NEGATIVE) Blood Type Antibody Screen Antibody Identification Antigen Typing Crossmatch Med Orders - Current: Current Medications Al Hydroxide/Mg Hydroxide (Mag-Al Plus) 30 ml PO Q4H PRN PRN Reason: indigestion Aspirin (Aspirin) 325 mg PO BID JOHN Last Admin: 02/19/18 08:04 Dose: 325 mg Bisacodyl (Dulcolax) 10 mg RECTAL DAILY PRN PRN Reason: Constipation Bupivacaine Liposome (Exparel) 20 ml INFILT ASDIRECTED [facility] Docusate Sodium (Colace) 100 mg PO BID [facility] Last Admin: 02/19/18 08:04 Dose: 100 mg Famotidine (Pepcid) 40 mg IVPUSH ONARRIVE [facility] Last Admin: 02/18/18 07:28 Dose: 40 mg Famotidine (Pepcid) 40 mg PO DAILY [facility] Last Admin: 02/19/18 08:04 Dose: 40 mg Gabapentin (Neurontin) 300 mg PO TID [facility] Last Admin: 02/19/18 05:20 Dose: 300 mg Cefazolin Sodium/Dextrose 1 gm (/ Premix) 50 mls @ 100 mls/hr IV ONCALL [facility] Ropivacaine 49.25 ml/Ketorolac Tromethamine 30 mg/Epinephrine HCl 0.5 mg/ Clonidine HCl 80 mcg/ Sodium Chloride 76.55 mls @ 50 mls/sec INJECT ASDIRECTED [facility] Lactated Ringer's (Ringers, Lactated) 1,000 mls @ 100 mls/hr IV ASDIRECTED [facility] Last Admin: 02/18/18 07:15 Dose: 100 mls/hr Tranexamic Acid 4,000 mg/ (Sodium Chloride) 140 mls @ 600 mls/hr IV ASDIRECTED [facility] Phenylephrine HCl 10 mg/ (Sodium Chloride) 100 mls @ 24 mls/hr IV TITRATE [facility]; Protocol Last Titration: 02/18/18 14:00 Dose: 0 mcg/min, 0 mls/hr Lactated Ringer's (Ringers, Lactated) 1,000 mls @ 125 mls/hr IV ASDIRECTED [facility] Last Admin: 02/19/18 04:48 Dose: 125 mls/hr Lisinopril (Prinivil) 10 mg PO DAILY [facility] Last Admin: 02/19/18 08:05 Dose: 10 mg Metoprolol Succinate (Toprol Xl) 50 mg PO QAM [facility] Last Admin: 02/19/18 08:05 Dose: 50 mg Metoprolol Succinate (Toprol Xl) 50 mg PO DAILY [facility] Ondansetron HCl (Zofran) 4 mg IV Q6HR PRN PRN Reason: NAUSEA/VOMITING Oxycodone HCl (Oxycodone) 5 - 10 mg PO Q4H PRN PRN Reason: Pain Last Admin: 02/19/18 08:54 Dose: 10 mg Oxycodone/Acetaminophen (Percocet 325-10 Mg) 1 - 2 tab PO Q4H PRN PRN Reason: Pain Ipratropium [place] 0.03 Percent Nasal [place] 1 each NASBOTH QAM [facility] Last Admin: 02/19/18 08:04 Dose: Not Given Potassium Chloride (Klor-Con M20) 20 meq PO BID [facility] Last Admin: 02/19/18 08:04 Dose: 20 meq Scopolamine (Transderm-Scop) 1.5 mg TRDERM ONARRIVE [facility] Last Admin: 02/18/18 07:35 Dose: 1.5 mg Tramadol HCl (Ultram) 50 - 100 mg PO Q6H PRN PRN Reason: Pain Last Admin: 02/19/18 07:29 Dose: 50 mg Discontinued Medications Aspirin (Ecotrin) 325 mg PO ONETIME ONE Stop: 02/18/18 13:09 Last Admin: 02/18/18 13:57 Dose: 325 mg Atorvastatin Calcium (Lipitor) 80 mg PO ONETIME ONE Stop: 02/18/18 13:10 Last Admin: 02/18/18 14:00 Dose: 80 mg Atorvastatin Calcium (Lipitor) 80 mg PO ONETIME ONE Stop: 02/19/18 09:15 Cefazolin Sodium/Dextrose (Ancef) Confirm Administered Dose 2 gm IV .STK-MED ONE Stop: 02/18/18 07:08 Celecoxib (Celebrex) 200 mg PO BID [facility] Ephedrine Sulfate (Ephedrine Sulfate) Confirm Administered Dose 50 mg .ROUTE .STK-MED ONE Stop: 02/18/18 07:08 Ephedrine Sulfate (Ephedrine Sulfate) Confirm Administered Dose 50 mg .ROUTE .STK-MED ONE Stop: 02/18/18 09:17 Fentanyl (Sublimaze) Confirm Administered Dose 100 mcg .ROUTE .STK-MED ONE Stop: 02/18/18 07:08 Hydromorphone HCl (Dilaudid) 2 mg IVPUSH ONETIME ONE Stop: 02/18/18 10:50 Last Admin: 02/18/18 13:55 Dose: Not Given Hydromorphone HCl (Dilaudid) 1 mg IVPUSH ONETIME ONE Stop: 02/19/18 09:08 Acetaminophen 1,000 mg/ Premix 100 mls @ 400 mls/hr IV Q6H [facility] Stop: 02/19/18 01:14 Last Admin: 02/19/18 00:49 Dose: 400 mls/hr Cefazolin Sodium/Dextrose 1 gm (/ Premix) 50 mls @ 100 mls/hr IV Q8H [facility] Stop: 02/19/18 00:29 Last Admin: 02/19/18 00:21 Dose: 100 mls/hr Ketorolac Tromethamine (Toradol) 30 mg IVPUSH ONARRIVE [facility] Last Admin: 02/18/18 07:23 Dose: 30 mg Ketorolac Tromethamine (Toradol) 30 mg IVPUSH Q6H JOHN Stop: 02/19/18 05:00 Last Admin: 02/19/18 00:49 Dose: 30 mg Midazolam HCl (Versed 1 Mg/Ml) Confirm Administered Dose 2 mg .ROUTE .STK-MED ONE Stop: 02/18/18 07:08 Midazolam HCl (Versed 1 Mg/Ml) Confirm Administered Dose 2 mg .ROUTE .STK-MED ONE Stop: 02/18/18 08:33 Morphine Sulfate (Morphine Monotypist 30 Mg In 30 Ml) 30 mg IV ASDIRECTED [facility]; Protocol Stop: 02/19/18 08:00 Last Admin: 02/18/18 10:27 Dose: 30 mg Morphine Sulfate (Morphine) 1 - 3 mg IVPUSH Q3H PRN PRN Reason: Pain Ondansetron HCl (Zofran) Confirm Administered Dose 4 mg .ROUTE .STK-MED ONE Stop: 02/18/18 08:21 Oxycodone HCl (Oxycodone) 5 - 10 mg PO Q4H PRN PRN Reason: Pain Stop: 02/19/18 08:00 Last Admin: 02/19/18 05:21 Dose: 10 mg Oxycodone/Acetaminophen (Percocet 325-5 Mg) 1 - 2 tab PO Q4H PRN PRN Reason: Pain Phenylephrine HCl (Phenylephrine In Ns 100 Mcg/Ml) Confirm Administered Dose 1 mg .ROUTE .STK-MED ONE Stop: 02/18/18 07:08 Promethazine HCl (Phenergan) 25 mg IM ONETIME ONE Stop: 02/18/18 10:50 Last Admin: 02/18/18 13:56 Dose: Not Given Propofol (Diprivan 20 Ml) Confirm Administered Dose 600 mg .ROUTE .STK-MED ONE Stop: 02/18/18 07:13 Tranexamic Acid (Cyklokapron) Confirm Administered Dose 4,000 mg .ROUTE .STK- MED ONE Stop: 02/18/18 07:17 - Exam Wound/Incisions: Dressing Dry and Intact. No: Drainage, Erythema General: Alert, Oriented Cardiovascular: Regular Rate, Regular Rhythm Extremities: Other (exam LLE - at/ehl/gastroc 5-5, dp 2+, sensation intact distally) Physical Findings Comment:: vss, afeb hgb 9.6 uo 2000+ mL tro-I trending downward, now 0.270 - Problem List Review Problem List Initiated/Reviewed/Updated: Yes - My Orders Last 24 Hours: Active Orders 24 hr Category Date Time Status Dressing Change [Wound Care] [RC] ASDIRECTED Care 02/18/18 09:57 Active Intake and Output [RC] ASDIRECTED Care 02/18/18 09:57 Active Neurovascular Check [RC] Q2HR Care 02/18/18 09:57 Active RT Incentive Spirometry [RC] ASDIRECTED Care 02/18/18 09:57 Active Remove Butts Catheter [Urinary Catheter Removal] [RC] Care 02/19/18 08:14 Active Per Unit Routine Vital Signs [RC] Q1H Care 02/18/18 09:57 Active Consult to Physician [CONS] Routine Cons 02/18/18 13:27 Active PT Evaluation and Treatment [CONS] Routine Cons 02/18/18 09:57 Active Echo Comp wo Cont [US] Stat Exams 02/18/18 13:07 Taken HEMOGLOBIN/HEMATOCRIT,HH [HEME] DAILY Lab 02/20/18 06:00 Ordered HEMOGLOBIN/HEMATOCRIT,HH [HEME] DAILY Lab 02/21/18 06:00 Ordered Acetaminophen/oxyCODONE [Percocet 325-10 MG] Med 02/19/18 09:07 Ordered 1 - 2 tab PO Q4H PRN Alum Hydrox/Mag Hydrox/Simeth [Mag-Al Plus] Med 02/18/18 09:58 Active 30 ml PO Q4H PRN Aspirin Med 02/19/18 09:00 Active 325 mg PO BID Bisacodyl [Dulcolax] Med 02/18/18 09:58 Active 10 mg RECTAL DAILY PRN Docusate Sodium [Colace] Med 02/18/18 21:00 Active 100 mg PO BID Famotidine [Pepcid] Med 02/19/18 09:00 Active 40 mg PO DAILY Gabapentin [Neurontin] Med 02/18/18 14:00 Active 300 mg PO TID Lactated Ringers [Ringers, Lactated] 1,000 ml Med 02/18/18 13:15 Active IV ASDIRECTED Lisinopril [Prinivil] Med 02/19/18 09:00 Active 10 mg PO DAILY Metoprolol Succinate [Toprol XL] Med 02/19/18 09:15 Active 50 mg PO DAILY Metoprolol Succinate [Toprol XL] Med 02/19/18 09:00 Active 50 mg PO QAM Ondansetron [Zofran] Med 02/18/18 09:57 Active 4 mg IV Q6HR PRN Patient's Own Medication [Ptom] Med 02/19/18 09:00 Active 1 each NASBOTH QAM Phenylephrine [Jose-Synephrine] 10 mg Med 02/18/18 11:00 Active Sodium Chloride 0.9% [Normal Saline] 99 ml IV TITRATE Potassium Chloride [Klor-Con M20] Med 02/18/18 21:00 Active 20 meq PO BID oxyCODONE Med 02/19/18 08:43 Active 5 - 10 mg PO Q4H PRN traMADol [Ultram] Med 02/18/18 09:58 Active 50 - 100 mg PO Q6H PRN Ice Therapy [OM.PC] Routine Oth 02/18/18 09:57 Ordered Medication Orders Al Hydroxide/Mg Hydroxide (Mag-Al Plus) 30 ml PO Q4H PRN PRN Reason: indigestion Aspirin (Aspirin) 325 mg PO BID [facility] Last Admin: 02/19/18 08:04 Dose: 325 mg Bisacodyl (Dulcolax) 10 mg RECTAL DAILY PRN PRN Reason: Constipation Bupivacaine Liposome (Exparel) 20 ml INFILT ASDIRECTED JOHN Docusate Sodium (Colace) 100 mg PO BID [facility] Last Admin: 02/19/18 08:04 Dose: 100 mg Admin: 02/18/18 20:07 Dose: 100 mg Famotidine (Pepcid) 40 mg IVPUSH ONARRIVE [facility] Last Admin: 02/18/18 07:28 Dose: 40 mg Famotidine (Pepcid) 40 mg PO DAILY [facility] Last Admin: 02/19/18 08:04 Dose: 40 mg Gabapentin (Neurontin) 300 mg PO TID [facility] Last Admin: 02/19/18 05:20 Dose: 300 mg Admin: 02/18/18 21:09 Dose: 300 mg Admin: 02/18/18 14:00 Dose: 300 mg Cefazolin Sodium/Dextrose 1 gm (/ Premix) 50 mls @ 100 mls/hr IV ONCALL JOHN Ropivacaine 49.25 ml/Ketorolac Tromethamine 30 mg/Epinephrine HCl 0.5 mg/ Clonidine HCl 80 mcg/ Sodium Chloride 76.55 mls @ 50 mls/sec INJECT ASDIRECTED [facility] Lactated Ringer's (Ringers, Lactated) 1,000 mls @ 100 mls/hr IV ASDIRECTED [facility] Last Admin: 02/18/18 07:15 Dose: 100 mls/hr Tranexamic Acid 4,000 mg/ (Sodium Chloride) 140 mls @ 600 mls/hr IV ASDIRECTED JOHN Phenylephrine HCl 10 mg/ (Sodium Chloride) 100 mls @ 24 mls/hr IV TITRATE JOHN; Protocol Last Titration: 02/18/18 14:00 Dose: 0 mcg/min, 0 mls/hr Admin: 02/18/18 13:30 Dose: 15 mcg/min, 9 mls/hr Lactated Ringer's (Ringers, Lactated) 1,000 mls @ 125 mls/hr IV ASDIRECTED [facility] Last Admin: 02/19/18 04:48 Dose: 125 mls/hr Lisinopril (Prinivil) 10 mg PO DAILY [facility] Last Admin: 02/19/18 08:05 Dose: 10 mg Metoprolol Succinate (Toprol Xl) 50 mg PO QAM [facility] Last Admin: 02/19/18 08:05 Dose: 50 mg Metoprolol Succinate (Toprol Xl) 50 mg PO DAILY [facility] Ondansetron HCl (Zofran) 4 mg IV Q6HR PRN PRN Reason: NAUSEA/VOMITING Oxycodone HCl (Oxycodone) 5 - 10 mg PO Q4H PRN PRN Reason: Pain Last Admin: 08/28/18 08:54 Dose: 10 mg Oxycodone/Acetaminophen (Percocet 325-10 Mg) 1 - 2 tab PO Q4H PRN PRN Reason: Pain Ipratropium [place] 0.03 Percent Nasal [place] 1 each NASBOTH QAM [facility] Last Admin: 02/19/18 08:04 Dose: Potassium Chloride (Klor-Con M20) 20 meq PO BID [facility] Last Admin: 02/19/18 08:04 Dose: 20 meq Admin: 02/18/18 20:07 Dose: 20 meq Scopolamine (Transderm-Scop) 1.5 mg TRDERM ONARRIVE [facility] Last Admin: 02/18/18 07:35 Dose: 1.5 mg Tramadol HCl (Ultram) 50 - 100 mg PO Q6H PRN PRN Reason: Pain Last Admin: 02/19/18 07:29 Dose: 50 mg Admin: 02/18/18 22:26 Dose: 50 mg - Assessment Assessment (Free Text/Narrative):: POD#1 L TKA acute posthemorrhagic anemia post-op cp, elevated tro-I - Plan Plan (Free Text/Narrative):: IV fluid management per hospitalist DIAMOND butts DC [employer]UC[employer] - dilaudid IV prn breakthrough pain DC oxycodone - percocet 10/325 prn available ASA 325mg PO BID as DVT prophylaxis PT today pt has wheeled walker or script has been written anticipate up to 72 hour stay for IV pain medication and continued physical therapy d/ch medications written
[2018-02-19] MEDS: HYDROmorphone 1 MG/ML Syringe IVPUSH PRN ×3 (10:48→20:40)
[2018-02-19] MEDS: Acetaminophen/oxyCODONE 325-10 MG Tab PO PRN ×3 (11:43→19:37)
--- NOTE | 2018-02-19 23:27 | PCM.CONSN ---
- General Info Date of Service: 02/19/18 Admission Dx/Problem (Free Text): Patient feeling well , no chest pain , restarted on her BP medications. Had migraine headache in the morning and the nurse was told to give her fioricet( tylenol , butalbital , cofeine) Her echo showed decreased EF to 45 % in the morning patient was given atorvastaine 80 mg one dose and she was continued with the medications from Surgery : aspirine 325 mg po BID .Hb A1c was 5.4 an ldl 54 and HB dropped to 9.6 from 11. Patient says she used to have anemia. She received fluids 3-4 L yesterday. Will order B12 level as she has history of gastric bypass and iron studies.She sufferers of Migraine headaches with photophobia - Review of Systems General: Reports: No Symptoms HEENT: Reports: Headaches Pulmonary: Reports: No Symptoms Cardiovascular: Reports: No Symptoms Gastrointestinal: Reports: No Symptoms Genitourinary: Reports: No Symptoms Musculoskeletal: Reports: No Symptoms Skin: Reports: No Symptoms - Patient Data Vitals - Most Recent: Last Vital Signs Temp 98.8 F 02/19/18 20:50 Pulse 72 02/19/18 20:50 Resp 18 02/19/18 20:50 BP 150/100 H 02/19/18 20:50 Pulse Ox 90 L 02/19/18 20:50 Weight - Most Recent: 140 lb I&O - Last 24 Hours: Intake & Output 02/19/18 02/19/18 02/20/18 14:59 22:59 06:59 Intake Total 625 625 Output Total 200 400 Balance 425 225 Lab Results Last 24 Hours: Laboratory Results - last 24 hr 02/19/18 02/19/18 Range/Units 05:20 05:20 Hgb 9.6 L (12.0-16.0) g/dL Hct 30.7 L (36.0-46.0) % Troponin I 0.270 H* (0.000-0.056) ng/mL Med Orders - Current: Current Medications Al Hydroxide/Mg Hydroxide (Mag-Al Plus) 30 ml PO Q4H PRN PRN Reason: indigestion Aspirin (Aspirin) 325 mg PO BID [facility] Last Admin: 02/19/18 21:06 Dose: 325 mg Bisacodyl (Dulcolax) 10 mg RECTAL DAILY PRN PRN Reason: Constipation Bupivacaine Liposome (Exparel) 20 ml INFILT ASDIRECTED [facility] Docusate Sodium (Colace) 100 mg PO BID [facility] Last Admin: 02/19/18 21:06 Dose: 100 mg Famotidine (Pepcid) 40 mg IVPUSH ONARRIVE [facility] Last Admin: 02/18/18 07:28 Dose: 40 mg Famotidine (Pepcid) 40 mg PO DAILY [facility] Last Admin: 02/19/18 08:04 Dose: 40 mg Gabapentin (Neurontin) 300 mg PO TID [facility] Last Admin: 02/19/18 21:56 Dose: 300 mg Hydromorphone HCl (Dilaudid) 0.5 - 1 mg IVPUSH Q3H PRN PRN Reason: Pain Last Admin: 02/19/18 20:40 Dose: 1 mg Cefazolin Sodium/Dextrose 1 gm (/ Premix) 50 mls @ 100 mls/hr IV ONCALL [facility] Ropivacaine 49.25 ml/Ketorolac Tromethamine 30 mg/Epinephrine HCl 0.5 mg/ Clonidine HCl 80 mcg/ Sodium Chloride 76.55 mls @ 50 mls/sec INJECT ASDIRECTED [facility] Tranexamic Acid 4,000 mg/ (Sodium Chloride) 140 mls @ 600 mls/hr IV ASDIRECTED [facility] Phenylephrine HCl 10 mg/ (Sodium Chloride) 100 mls @ 24 mls/hr IV TITRATE [facility]; Protocol Last Titration: 02/18/18 14:00 Dose: 0 mcg/min, 0 mls/hr Lactated Ringer's (Ringers, Lactated) 1,000 mls @ 125 mls/hr IV ASDIRECTED [facility] Last Admin: 02/19/18 04:48 Dose: 125 mls/hr Lisinopril (Prinivil) 10 mg PO DAILY [facility] Last Admin: 02/19/18 08:05 Dose: 10 mg Metoprolol Succinate (Toprol Xl) 50 mg PO QAM [facility] Last Admin: 02/19/18 08:05 Dose: 50 mg Ondansetron HCl (Zofran) 4 mg IV Q6HR PRN PRN Reason: NAUSEA/VOMITING Oxycodone/Acetaminophen (Percocet 325-10 Mg) 1 - 2 tab PO Q4H PRN PRN Reason: Pain Last Admin: 02/19/18 19:37 Dose: 2 tab Ipratropium [place] 0.03 Percent Nasal [place] 1 each NASBOTH QAM [facility] Last Admin: 02/19/18 08:04 Dose: Not Given Potassium Chloride (Klor-Con M20) 20 meq PO BID [facility] Last Admin: 02/19/18 21:06 Dose: 20 meq Scopolamine (Transderm-Scop) 1.5 mg TRDERM ONARRIVE [facility] Last Admin: 02/18/18 07:35 Dose: 1.5 mg Tramadol HCl (Ultram) 50 - 100 mg PO Q6H PRN PRN Reason: Pain Last Admin: 02/19/18 22:04 Dose: 100 mg Discontinued Medications Aspirin (Ecotrin) 325 mg PO ONETIME ONE Stop: 02/18/18 13:09 Last Admin: 02/18/18 13:57 Dose: 325 mg Atorvastatin Calcium (Lipitor) 80 mg PO ONETIME ONE Stop: 02/18/18 13:10 Last Admin: 02/18/18 14:00 Dose: 80 mg Atorvastatin Calcium (Lipitor) 80 mg PO ONETIME ONE Stop: 02/19/18 09:15 Last Admin: 02/19/18 10:49 Dose: 80 mg Cefazolin Sodium/Dextrose (Ancef) Confirm Administered Dose 2 gm IV .STK-MED ONE Stop: 02/18/18 07:08 Celecoxib (Celebrex) 200 mg PO BID [facility] Ephedrine Sulfate (Ephedrine Sulfate) Confirm Administered Dose 50 mg .ROUTE .STK-MED ONE Stop: 02/18/18 07:08 Ephedrine Sulfate (Ephedrine Sulfate) Confirm Administered Dose 50 mg .ROUTE .STK-MED ONE Stop: 02/18/18 09:17 Fentanyl (Sublimaze) Confirm Administered Dose 100 mcg .ROUTE .STK-MED ONE Stop: 02/18/18 07:08 Hydromorphone HCl (Dilaudid) 2 mg IVPUSH ONETIME ONE Stop: 02/18/18 10:50 Last Admin: 02/18/18 13:55 Dose: Not Given Hydromorphone HCl (Dilaudid) 1 mg IVPUSH ONETIME ONE Stop: 02/19/18 09:08 Last Admin: 02/19/18 09:13 Dose: 1 mg Lactated Ringer's (Ringers, Lactated) 1,000 mls @ 100 mls/hr IV ASDIRECTED [facility] Last Admin: 02/18/18 07:15 Dose: 100 mls/hr Acetaminophen 1,000 mg/ Premix 100 mls @ 400 mls/hr IV Q6H [facility] Stop: 02/19/18 01:14 Last Admin: 02/19/18 00:49 Dose: 400 mls/hr Cefazolin Sodium/Dextrose 1 gm (/ Premix) 50 mls @ 100 mls/hr IV Q8H [facility] Stop: 02/19/18 00:29 Last Admin: 02/19/18 00:21 Dose: 100 mls/hr Ketorolac Tromethamine (Toradol) 30 mg IVPUSH ONARRIVE [facility] Last Admin: 02/18/18 07:23 Dose: 30 mg Ketorolac Tromethamine (Toradol) 30 mg IVPUSH Q6H [facility] Stop: 02/19/18 05:00 Last Admin: 02/19/18 00:49 Dose: 30 mg Metoprolol Succinate (Toprol Xl) 50 mg PO DAILY [facility] Last Admin: 02/19/18 11:04 Dose: Not Given Midazolam HCl (Versed 1 Mg/Ml) Confirm Administered Dose 2 mg .ROUTE .STK-MED ONE Stop: 02/18/18 07:08 Midazolam HCl (Versed 1 Mg/Ml) Confirm Administered Dose 2 mg .ROUTE .STK-MED ONE Stop: 02/18/18 08:33 Morphine Sulfate (Morphine [employer] 30 Mg In 30 Ml) 30 mg IV ASDIRECTED [facility]; Protocol Stop: 02/19/18 08:00 Last Admin: 02/18/18 10:27 Dose: 30 mg Morphine Sulfate (Morphine) 1 - 3 mg IVPUSH Q3H PRN PRN Reason: Pain Ondansetron HCl (Zofran) Confirm Administered Dose 4 mg .ROUTE .STK-MED ONE Stop: 02/18/18 08:21 Oxycodone HCl (Oxycodone) 5 - 10 mg PO Q4H PRN PRN Reason: Pain Stop: 02/19/18 08:00 Last Admin: 02/19/18 05:21 Dose: 10 mg Oxycodone HCl (Oxycodone) 5 - 10 mg PO Q4H PRN PRN Reason: Pain Last Admin: 02/19/18 08:54 Dose: 10 mg Oxycodone/Acetaminophen (Percocet 325-5 Mg) 1 - 2 tab PO Q4H PRN PRN Reason: Pain Phenylephrine HCl (Phenylephrine In Ns 100 Mcg/Ml) Confirm Administered Dose 1 mg .ROUTE .STK-MED ONE Stop: 02/18/18 07:08 Promethazine HCl (Phenergan) 25 mg IM ONETIME ONE Stop: 02/18/18 10:50 Last Admin: 02/18/18 13:56 Dose: Not Given Propofol (Diprivan 20 Ml) Confirm Administered Dose 600 mg .ROUTE .STK-MED ONE Stop: 02/18/18 07:13 Tranexamic Acid (Cyklokapron) Confirm Administered Dose 4,000 mg .ROUTE .STK- MED ONE Stop: 02/18/18 07:17 - Exam General: Alert, Oriented, Cooperative HEENT: Pupils Equal, Pupils Reactive, EOMI Neck: Supple, Trachea Midline, No JVD, No Thyromegaly Lungs: Clear to Auscultation, Normal Respiratory Effort Cardiovascular: Regular Rate, Regular Rhythm, No Murmurs GI/Abdominal Exam: Normal Bowel Sounds, Soft, Non-Tender Extremities: Leg Pain (dreassing on) Skin: Warm, Dry, Intact Neurological: No New Focal Deficit Psy/Mental Status: Alert, Normal Affect, Normal Mood Consult PN Assessment/Plan Procedures: Procedures ASSAY OF ESTRADIOL (11/30/17) ASSAY OF FERRITIN (11/30/17) ASSAY OF FOLIC ACID SERUM (12/04/17) ASSAY OF GONADOTROPIN (F[facility]) (11/30/17) ASSAY THYROID STIM HORMONE (11/30/17) NAM DNA DIR PROBE (12/04/17) COMPLETE CBC AUTOMATED (11/30/17) ALVAREZ VAG DNA DIR PROBE (12/04/17) IMMUNOASSAY TUMOR CA 125 (12/04/17) IRON BINDING TEST (11/30/17) KNEE ARTHROSCOPY/SURGERY (11/17/15) MRI JNT OF LWR EXTRE W/O DYE (01/21/18) PT EVALUATION (12/16/15) THER/PROPH/DIAG IV INF INIT (12/13/17) THERAPEUTIC EXERCISES (12/16/15) TISSUE EXAM BY PATHOLOGIST (12/04/17) TRICHOMONAS VAGIN DIR PROBE (12/04/17) URINE TEST (11/17/15) VITAMIN B-12 (12/04/17) X-RAY EXAM HIPS BI 2 VIEWS (04/26/17) X-RAY EXAM KNEE 4 OR MORE (01/15/18) X-RAY EXAM OF KNEE 3 (10/13/15) (1) Hypotension due to drugs Current Visit: Yes (2) Chest pain due to myocardial ischemia SNOMED Code(s): 135586334 Code(s): I25.9 - CHRONIC ISCHEMIC HEART DISEASE, UNSPECIFIED Current Visit : Yes (3) Elevated troponin SNOMED Code(s): 538594277, 642620234, 439702795 Code(s): R74.8 - ABNORMAL LEVELS OF OTHER SERUM ENZYMES Current Visit: Yes (4) HTN (hypertension), benign SNOMED Code(s): 60707677 Code(s): I10 - ESSENTIAL (PRIMARY) HYPERTENSION Current Visit: Yes (5) S/P gastric bypass SNOMED Code(s): 402949369, 459623656, 102904818, 063573760 Code(s): Z98.84 - BARIATRIC SURGERY STATUS Current Visit: Yes (6) Anemia SNOMED Code(s): 155144784 Code(s): D64.9 - ANEMIA, UNSPECIFIED Current Visit: Yes (7) Migraine SNOMED Code(s): 55834882 Code(s): G43.909 - MIGRAINE, UNSP, NOT INTRACTABLE, WITHOUT STATUS MIGRAINOSUS Current Visit: Yes (8) Status post left knee replacement SNOMED Code(s): 9819047013647, 4735961543513 Code(s): Z96.652 - PRESENCE OF LEFT ARTIFICIAL KNEE JOINT Current Visit: Yes Problem List Initiated/Reviewed/Updated: Yes My Orders Last 24 Hours: My Active Orders 02/19/18 10:35 EKG 12 Lead [EKG Documentation Completion] [RC] STAT Plan: Assessment and plan demand ischemia of the heart due to hypotension, troponins three sets were trending down Aspirin 325 mg po BID , atorvastaine 80 mg po one dose today , will continue with atorvastaine 40 mg po daily, ischemic work up as outpatient , f/up cardiology HTN u/c - patient restarted on her home medications : lisinopril 10 mg po daily , metoprolol 50 mg po daily , pain control Migraine headache: fioricet 1 tab q 4 h prn for migraine. This is the medication she usually uses for migraine Anemia mild- of hemodilution - will monitor hb , iron studies and B 12 level, stool for Occult blood s/p left knee replacement - f/up surgery , f/up PT, pain management as per surgery
[2018-02-19] MEDS ORDERED: Acetaminophen/Butalbital/Caffeine 325-50-40 MG Tab PO PRN (23:58)
[2018-02-20] MEDS: HYDROmorphone 1 MG/ML Syringe IVPUSH PRN ×4 (00:07→11:10)
[2018-02-20] MEDS: Acetaminophen/oxyCODONE 325-10 MG Tab PO PRN ×3 (02:40→12:37)
[2018-02-20] MEDS: Gabapentin 300 MG Cap PO SCH ×2 (05:29→13:31)
[2018-02-20 06:29] LABS: CHLORIDE,CL 100 mmol/L (98-107); SODIUM,NA 136 mmol/L (136-145)
[2018-02-20] MEDS: Aspirin 325 MG Tab PO SCH (08:09)
[2018-02-20] MEDS: Metoprolol Succinate 50 MG Tab.ER PO SCH (08:10)
[2018-02-20] MEDS: Famotidine 20 MG Tab PO SCH (08:10)
[2018-02-20] MEDS: Docusate Sodium 100 MG Cap PO SCH (08:10)
[2018-02-20] MEDS: Potassium Chloride 20 MEQ Tab.ER PO SCH (08:12)
[2018-02-20] MEDS: Lisinopril 10 MG Tab PO SCH (08:12)
[2018-02-20] MEDS: IPRATROPIUM BROMIDE NASBOTH SCH (09:48)
[2018-02-20] MEDS: traMADol 50 MG Tab PO PRN (10:03)
--- NOTE | 2018-02-20 12:22 | PCM.SURGPN ---
- General Info Date of Service: 02/20/18 POD#: 2 Functional Status: Reports: Pain Controlled, Tolerating Diet - Review of Systems General: Reports: No Symptoms HEENT: Reports: No Symptoms Pulmonary: Reports: No Symptoms Cardiovascular: Reports: No Symptoms Gastrointestinal: Reports: No Symptoms Genitourinary: Reports: No Symptoms Neurological: Reports: No Symptoms Psychiatric: Reports: No Symptoms Systems Review Comment:: Patient doing better today. Pain better controlled. Has been OOB. Denies CP, SOB. - Patient Data Vitals - Most Recent: Last Vital Signs Temp 99.5 F 02/20/18 07:00 Pulse 60 02/20/18 08:10 Resp 18 02/20/18 07:00 BP 120/70 02/20/18 08:12 Pulse Ox 93 L 02/20/18 07:00 Weight - Most Recent: 63.503 kg I&O - Last 24 Hours: Intake & Output 02/19/18 02/20/18 02/20/18 22:59 06:59 14:59 Intake Total 625 650 Output Total 400 900 Balance 225 -250 Lab Results Last 24 Hrs: Laboratory Results - last 24 hr 02/20/18 02/20/18 02/20/18 Range/Units 05:10 05:10 05:10 WBC 6.07 (4.0-11.0) K/uL RBC 3.41 L (4.30-5.90) M/uL Hgb 10.5 L (12.0-16.0) g/dL Hct 33.5 L (36.0-46.0) % MCV 98.2 H (80.0-98.0) fL MCH 30.8 (27.0-32.0) pg MCHC 31.3 (31.0-37.0) g/dL RDW Std Deviation 56.5 (28.0-62.0) fl RDW Coeff of [place] 16 H (11.0-15.0) % Plt Count 182 (150-400) K/uL MPV 10.30 (7.40-12.00) fL Neut % (Auto) 80.0 (48.0-80.0) % Lymph % (Auto) 10.4 L (16.0-40.0) % [place] % (Auto) 5.9 (0.0-15.0) % Eos % (Auto) 3.5 (0.0-7.0) % Baso % (Auto) 0.2 (0.0-1.5) % Neut # (Auto) 4.9 (1.4-5.7) K/uL Lymph # (Auto) 0.6 (0.6-2.4) K/uL [place] # (Auto) 0.4 (0.0-0.8) K/uL Eos # (Auto) 0.2 (0.0-0.7) K/uL Baso # (Auto) 0.0 (0.0-0.1) K/uL Nucleated RBC % 0.0 /100WBC Nucleated RBCs # 0 K/uL Sodium 136 (136-145) mmol/L Potassium 4.3 (3.5-5.1) mmol/L Chloride 100 (98-107) mmol/L Carbon Dioxide 30.7 (21.0-32.0) mmol/L BUN 8 (7.0-18.0) mg/dL Creatinine 0.8 (0.6-1.0) mg/dL Est Cr Clr Drug Dosing 74.86 mL/min Estimated GFR (MDRD) > 60.0 ml/min Glucose 112 H (74-106) mg/dL Calcium 8.4 L (8.5-10.1) mg/dL Iron 19 L (50-175) ug/dL TIBC 275 (250-450) ug/dL % Saturation 6.91 L (20-55) % Ferritin 50 (8-252) ng/mL Total Bilirubin 0.5 (0.2-1.0) mg/dL AST 35 (15-37) IU/L ALT 31 (14-63) IU/L Alkaline Phosphatase 88 (46-116) U/L Total Protein 6.3 L (6.4-8.2) g/dL Albumin 2.9 L (3.4-5.0) g/dL Globulin 3.4 (2.0-3.5) g/dL Albumin/Globulin Ratio 0.9 L (1.3-2.8) Vitamin B12 244 (193-986) pg/mL Med Orders - Current: Current Medications Acetaminophen/Butalbital/Caffeine (Fioricet 325-50-40 Mg) 1 tab PO Q4H PRN PRN Reason: migraine Al Hydroxide/Mg Hydroxide (Mag-Al Plus) 30 ml PO Q4H PRN PRN Reason: indigestion Aspirin (Aspirin) 325 mg PO BID [facility] Last Admin: 02/20/18 08:09 Dose: 325 mg Atorvastatin Calcium (Lipitor) 40 mg PO BEDTIME [facility] Bisacodyl (Dulcolax) 10 mg RECTAL DAILY PRN PRN Reason: Constipation Bupivacaine Liposome (Exparel) 20 ml INFILT ASDIRECTED [facility] Docusate Sodium (Colace) 100 mg PO BID [facility] Last Admin: 02/20/18 08:10 Dose: 100 mg Famotidine (Pepcid) 40 mg IVPUSH ONARRIVE [facility] Last Admin: 02/18/18 07:28 Dose: 40 mg Famotidine (Pepcid) 40 mg PO DAILY [facility] Last Admin: 02/20/18 08:10 Dose: 40 mg Gabapentin (Neurontin) 300 mg PO TID [facility] Last Admin: 02/20/18 05:29 Dose: 300 mg Hydromorphone HCl (Dilaudid) 0.5 - 1 mg IVPUSH Q3H PRN PRN Reason: Pain Last Admin: 02/20/18 11:10 Dose: 0.5 mg Cefazolin Sodium/Dextrose 1 gm (/ Premix) 50 mls @ 100 mls/hr IV ONCALL [facility] Ropivacaine 49.25 ml/Ketorolac Tromethamine 30 mg/Epinephrine HCl 0.5 mg/ Clonidine HCl 80 mcg/ Sodium Chloride 76.55 mls @ 50 mls/sec INJECT ASDIRECTED [facility] Tranexamic Acid 4,000 mg/ (Sodium Chloride) 140 mls @ 600 mls/hr IV ASDIRECTED [facility] Phenylephrine HCl 10 mg/ (Sodium Chloride) 100 mls @ 24 mls/hr IV TITRATE [facility]; Protocol Last Titration: 02/18/18 14:00 Dose: 0 mcg/min, 0 mls/hr Lactated Ringer's (Ringers, Lactated) 1,000 mls @ 125 mls/hr IV ASDIRECTED [facility] Last Admin: 02/19/18 04:48 Dose: 125 mls/hr Lisinopril (Prinivil) 10 mg PO DAILY [facility] Last Admin: 02/20/18 08:12 Dose: 10 mg Metoprolol Succinate (Toprol Xl) 50 mg PO QAM [facility] Last Admin: 02/20/18 08:10 Dose: 50 mg Ondansetron HCl (Zofran) 4 mg IV Q6HR PRN PRN Reason: NAUSEA/VOMITING Oxycodone/Acetaminophen (Percocet 325-10 Mg) 1 - 2 tab PO Q4H PRN PRN Reason: Pain Last Admin: 02/20/18 06:50 Dose: 2 tab Ipratropium [place] 0.03 Percent Nasal [place] 1 each NASBOTH QAM [facility] Last Admin: 02/20/18 09:48 Dose: Not Given Potassium Chloride (Klor-Con M20) 20 meq PO BID [facility] Last Admin: 02/20/18 08:12 Dose: 20 meq Scopolamine (Transderm-Scop) 1.5 mg TRDERM ONARRIVE [facility] Last Admin: 02/18/18 07:35 Dose: 1.5 mg Tramadol HCl (Ultram) 50 - 100 mg PO Q6H PRN PRN Reason: Pain Last Admin: 02/20/18 10:03 Dose: 100 mg Discontinued Medications Aspirin (Ecotrin) 325 mg PO ONETIME ONE Stop: 02/18/18 13:09 Last Admin: 02/18/18 13:57 Dose: 325 mg Atorvastatin Calcium (Lipitor) 80 mg PO ONETIME ONE Stop: 02/18/18 13:10 Last Admin: 02/18/18 14:00 Dose: 80 mg Atorvastatin Calcium (Lipitor) 80 mg PO ONETIME ONE Stop: 02/19/18 09:15 Last Admin: 02/19/18 10:49 Dose: 80 mg Cefazolin Sodium/Dextrose (Ancef) Confirm Administered Dose 2 gm IV .STK-MED ONE Stop: 02/18/18 07:08 Celecoxib (Celebrex) 200 mg PO BID [facility] Ephedrine Sulfate (Ephedrine Sulfate) Confirm Administered Dose 50 mg .ROUTE .STK-MED ONE Stop: 02/18/18 07:08 Ephedrine Sulfate (Ephedrine Sulfate) Confirm Administered Dose 50 mg .ROUTE .STK-MED ONE Stop: 02/18/18 09:17 Fentanyl (Sublimaze) Confirm Administered Dose 100 mcg .ROUTE .STK-MED ONE Stop: 02/18/18 07:08 Hydromorphone HCl (Dilaudid) 2 mg IVPUSH ONETIME ONE Stop: 02/18/18 10:50 Last Admin: 02/18/18 13:55 Dose: Not Given Hydromorphone HCl (Dilaudid) 1 mg IVPUSH ONETIME ONE Stop: 02/19/18 09:08 Last Admin: 02/19/18 09:13 Dose: 1 mg Lactated Ringer's (Ringers, Lactated) 1,000 mls @ 100 mls/hr IV ASDIRECTED [facility] Last Admin: 02/18/18 07:15 Dose: 100 mls/hr Acetaminophen 1,000 mg/ Premix 100 mls @ 400 mls/hr IV Q6H [facility] Stop: 02/19/18 01:14 Last Admin: 02/19/18 00:49 Dose: 400 mls/hr Cefazolin Sodium/Dextrose 1 gm (/ Premix) 50 mls @ 100 mls/hr IV Q8H [facility] Stop: 02/19/18 00:29 Last Admin: 02/19/18 00:21 Dose: 100 mls/hr Ketorolac Tromethamine (Toradol) 30 mg IVPUSH ONARRIVE [facility] Last Admin: 02/18/18 07:23 Dose: 30 mg Ketorolac Tromethamine (Toradol) 30 mg IVPUSH Q6H [facility] Stop: 02/19/18 05:00 Last Admin: 02/19/18 00:49 Dose: 30 mg Metoprolol Succinate (Toprol Xl) 50 mg PO DAILY [facility] Last Admin: 02/19/18 11:04 Dose: Not Given Midazolam HCl (Versed 1 Mg/Ml) Confirm Administered Dose 2 mg .ROUTE .STK-MED ONE Stop: 02/18/18 07:08 Midazolam HCl (Versed 1 Mg/Ml) Confirm Administered Dose 2 mg .ROUTE .STK-MED ONE Stop: 02/18/18 08:33 Morphine Sulfate (Morphine [employer] 30 Mg In 30 Ml) 30 mg IV ASDIRECTED [facility]; Protocol Stop: 02/19/18 08:00 Last Admin: 02/18/18 10:27 Dose: 30 mg Morphine Sulfate (Morphine) 1 - 3 mg IVPUSH Q3H PRN PRN Reason: Pain Ondansetron HCl (Zofran) Confirm Administered Dose 4 mg .ROUTE .STK-MED ONE Stop: 02/18/18 08:21 Oxycodone HCl (Oxycodone) 5 - 10 mg PO Q4H PRN PRN Reason: Pain Stop: 02/19/18 08:00 Last Admin: 02/19/18 05:21 Dose: 10 mg Oxycodone HCl (Oxycodone) 5 - 10 mg PO Q4H PRN PRN Reason: Pain Last Admin: 02/19/18 08:54 Dose: 10 mg Oxycodone/Acetaminophen (Percocet 325-5 Mg) 1 - 2 tab PO Q4H PRN PRN Reason: Pain Phenylephrine HCl (Phenylephrine In Ns 100 Mcg/Ml) Confirm Administered Dose 1 mg .ROUTE .STK-MED ONE Stop: 02/18/18 07:08 Promethazine HCl (Phenergan) 25 mg IM ONETIME ONE Stop: 02/18/18 10:50 Last Admin: 02/18/18 13:56 Dose: Not Given Propofol (Diprivan 20 Ml) Confirm Administered Dose 600 mg .ROUTE .STK-MED ONE Stop: 02/18/18 07:13 Tranexamic Acid (Cyklokapron) Confirm Administered Dose 4,000 mg .ROUTE .STK- MED ONE Stop: 02/18/18 07:17 - Exam Wound/Incisions: Dressing Dry and Intact General: Alert, Oriented HEENT: Pupils Reactive Neck: Supple Lungs: Normal Respiratory Effort Cardiovascular: Regular Rhythm Neurological: No New Focal Deficit Psy/Mental Status: Alert, Normal Affect, Normal Mood Physical Findings Comment:: Dressing dry/intact. No calf TTP. AT/EHL/gastroc 5/5. Sensation intact. DP 2+. - Problem List Review Problem List Initiated/Reviewed/Updated: Yes - My Orders Last 24 Hours: Active Orders 24 hr Category Date Time Status Transfer Patient (Change bed) [ADT] Routine ADT 02/19/18 18:57 Ordered HEMOGLOBIN/HEMATOCRIT,HH [HEME] DAILY Lab 02/21/18 06:00 Ordered OCCULT BLOOD DIAGNOSTIC [OP] Routine Lab 02/19/18 23:52 Ordered Acetaminophen/Butalbital/Caff [Fioricet 325-50-40 MG] Med 02/19/18 23:58 Active 1 tab PO Q4H PRN atorvaSTATin [Lipitor] Med 02/20/18 21:00 Active 40 mg PO BEDTIME Medication Orders Acetaminophen/Butalbital/Caffeine (Fioricet 325-50-40 Mg) 1 tab PO Q4H PRN PRN Reason: migraine Al Hydroxide/Mg Hydroxide (Mag-Al Plus) 30 ml PO Q4H PRN PRN Reason: indigestion Aspirin (Aspirin) 325 mg PO BID [facility] Last Admin: 02/20/18 08:09 Dose: 325 mg Admin: 02/19/18 21:06 Dose: 325 mg Admin: 02/19/18 08:04 Dose: 325 mg Atorvastatin Calcium (Lipitor) 40 mg PO BEDTIME [facility] Bisacodyl (Dulcolax) 10 mg RECTAL DAILY PRN PRN Reason: Constipation Bupivacaine Liposome (Exparel) 20 ml INFILT ASDIRECTED [facility] Docusate Sodium (Colace) 100 mg PO BID [facility] Last Admin: 02/20/18 08:10 Dose: 100 mg Admin: 02/19/18 21:06 Dose: 100 mg Admin: 02/19/18 08:04 Dose: 100 mg Admin: 02/18/18 20:07 Dose: 100 mg Famotidine (Pepcid) 40 mg IVPUSH ONARRIVE [facility] Last Admin: 02/18/18 07:28 Dose: 40 mg Famotidine (Pepcid) 40 mg PO DAILY [facility] Last Admin: 02/20/18 08:10 Dose: 40 mg Admin: 02/19/18 08:04 Dose: 40 mg Gabapentin (Neurontin) 300 mg PO TID [facility] Last Admin: 02/20/18 05:29 Dose: 300 mg Admin: 02/19/18 21:56 Dose: 300 mg Admin: 02/19/18 13:40 Dose: 300 mg Admin: 02/19/18 05:20 Dose: 300 mg Admin: 02/18/18 21:09 Dose: 300 mg Admin: 02/18/18 14:00 Dose: 300 mg Hydromorphone HCl (Dilaudid) 0.5 - 1 mg IVPUSH Q3H PRN PRN Reason: Pain Last Admin: 02/20/18 11:10 Dose: 0.5 mg Admin: 02/20/18 08:12 Dose: 0.5 mg Admin: 02/20/18 04:18 Dose: 1 mg Admin: 02/20/18 00:07 Dose: 1 mg Admin: 02/19/18 20:40 Dose: 1 mg Admin: 02/19/18 17:53 Dose: 1 mg Admin: 02/19/18 10:48 Dose: 1 mg Cefazolin Sodium/Dextrose 1 gm (/ Premix) 50 mls @ 100 mls/hr IV ONCALL JOHN Ropivacaine 49.25 ml/Ketorolac Tromethamine 30 mg/Epinephrine HCl 0.5 mg/ Clonidine HCl 80 mcg/ Sodium Chloride 76.55 mls @ 50 mls/sec INJECT ASDIRECTED JOHN Tranexamic Acid 4,000 mg/ (Sodium Chloride) 140 mls @ 600 mls/hr IV ASDIRECTED JOHN Phenylephrine HCl 10 mg/ (Sodium Chloride) 100 mls @ 24 mls/hr IV TITRATE JOHN; Protocol Last Titration: 02/18/18 14:00 Dose: 0 mcg/min, 0 mls/hr Admin: 02/18/18 13:30 Dose: 15 mcg/min, 9 mls/hr Lactated Ringer's (Ringers, Lactated) 1,000 mls @ 125 mls/hr IV ASDIRECTED [facility] Last Admin: 02/19/18 04:48 Dose: 125 mls/hr Lisinopril (Prinivil) 10 mg PO DAILY [facility] Last Admin: 02/20/18 08:12 Dose: 10 mg Admin: 02/19/18 08:05 Dose: 10 mg Metoprolol Succinate (Toprol Xl) 50 mg PO QAM [facility] Last Admin: 02/20/18 08:10 Dose: 50 mg Admin: 02/19/18 08:05 Dose: 50 mg Ondansetron HCl (Zofran) 4 mg IV Q6HR PRN PRN Reason: NAUSEA/VOMITING Oxycodone/Acetaminophen (Percocet 325-10 Mg) 1 - 2 tab PO Q4H PRN PRN Reason: Pain Last Admin: 02/20/18 06:50 Dose: 2 tab Admin: 02/20/18 02:40 Dose: 2 tab Admin: 02/19/18 19:37 Dose: 2 tab Admin: 02/19/18 15:18 Dose: 2 tab Admin: 02/19/18 11:43 Dose: 2 tab Ipratropium [place] 0.03 Percent Nasal [place] 1 each NASBOTH QAM [facility] Last Admin: 02/20/18 09:48 Dose: Admin: 02/19/18 08:04 Dose: Potassium Chloride (Klor-Con M20) 20 meq PO BID [facility] Last Admin: 02/20/18 08:12 Dose: 20 meq Admin: 02/19/18 21:06 Dose: 20 meq Admin: 02/19/18 08:04 Dose: 20 meq Admin: 02/18/18 20:07 Dose: 20 meq Scopolamine (Transderm-Scop) 1.5 mg TRDERM ONARRIVE JOHN Last Admin: 02/18/18 07:35 Dose: 1.5 mg Tramadol HCl (Ultram) 50 - 100 mg PO Q6H PRN PRN Reason: Pain Last Admin: 02/20/18 10:03 Dose: 100 mg Admin: 02/19/18 22:04 Dose: 100 mg Admin: 02/19/18 13:39 Dose: 100 mg Admin: 02/19/18 07:29 Dose: 50 mg Admin: 02/18/18 22:26 Dose: 50 mg - Plan Plan (Free Text/Narrative):: 1. continue PT and mobilization 2. continue current pain management 3. ASA/SCD/Ovi hose for DVT prophylaxis 4. plan discharge today--has outpatient PT set up for Sunday in . Patient agrees with plan.
[2018-02-20] MEDS ORDERED: Cyanocobalamin (Vitamin B12) 1,000 MCG/ML SDV SUBCUT SCH (13:00)
--- NOTE | 2018-02-20 13:15 | ECHO ---
EXAM DATE: 02/18/18 PATIENT'S AGE: 52 The echocardiogram report can be seen in this patient's EMR (Electronic Medical Record) in the Reports section. The report has also been scanned into PACs. LUZ MARIA
--- NOTE | 2018-02-20 13:27 | PCM.SN ---
- Free Text/Narrative Note: dressing changed this morning pt ready for d/ch to home d/ch meds written, rx for walker written f/u as scheduled, sooner if needed d/ch summary #[id number]
--- NOTE | 2018-02-20 14:11 | DISCH ---
DATE OF DISCHARGE: 02/20/2018 PRIMARY CARE PHYSICIAN: JANETTE GUZMAN NP ADMITTING DIAGNOSIS: Degenerative joint disease, left knee, tricompartmental. OTHER MEDICAL DIAGNOSES: 1. History of gastric bypass with vitamin B12 deficiency. 2. History of cerebral aneurysm. 3. Hypertension. 4. Chronic pain. DISCHARGE DIAGNOSES: 1. Degenerative joint disease, left knee, tricompartmental. 2. History of gastric bypass with vitamin B12 deficiency. 3. History of cerebral aneurysm. 4. Hypertension. 5. Chronic pain. 6. Acute post hemorrhagic anemia. 7. Substernal chest pain. BRIEF HISTORY: Sandra is a 52-year-old female, who has had progressive complaints of left knee pain. She has tried and failed conservative treatment. At that time, surgical treatment was recommended. On February 18, 2018, the patient underwent a left total knee arthroplasty using patient-specific instrumentation done by Dr. Sherin Xavier. This was done under spinal anesthesia with sedation. Tourniquet time was 52 minutes. Estimated blood loss was 50 milliliters. There were no known complications. Upon completion of the procedure, the patient was transferred to the PACU and subsequently to the ICU for postoperative care. During her time in the recovery room, she did develop a substernal chest pressure. This was managed by Anesthesia team as well as the hospitalist. HOSPITAL COURSE: Postoperatively, the patient did well. She did not have any repeat episodes of chest pain here. Her troponin-I trended downwards postoperatively. Her pain was controlled with a combination of oral and IV pain medications. Physical therapy followed her through her hospital stay. Aspirin 325 mg by mouth twice daily was started on postoperative day #1 as DVT prophylaxis. The hospitalist and manager followed her through her hospital stay as well. At this time, her pain is controlled with oral pain medications. She is ambulating well with a wheeled walker. She feels this comfortable with discharge to home. Her vital signs have been stable. She has been afebrile. Her hemoglobin on the morning of February 20 was 10.5. DISCHARGE MEDICATIONS: 1. Percocet 10/325. 2. Ultram 50 milligrams. 3. Celebrex 200 milligrams. 4. Zofran 4 mg. 5. Colace 100 milligrams. 6. Aspirin 325 mg. DISCHARGE INSTRUCTIONS: 1. Follow up in clinic 10 to 14 days from the date of procedure. This appointment has been made for the patient. 2. Outpatient physical therapy 2 to 3 times per week for 4 to 6 weeks. 3. Polar Care to the left knee as needed. 4. She may not drive while taking narcotic pain medications. 5. Wear JOMAR hose as needed to the operative leg. For complete medication reconciliation and discharge instructions, please refer to the patient's EHR. Should she have questions or concerns prior to followup, she has been advised to return to clinic or call. ARMEN KINGSLEY /[phone]
[2018-02-20 16:49] VITALS: BP 163/101
[2018-02-20] MEDS ORDERED: atorvaSTATin 40 MG Tab PO SCH (21:00)
--- NOTE | 2018-02-21 00:17 | PCM.CONSN ---
- General Info Date of Service: 02/20/18 Subjective Update: Patient comfortable , her B12 is 244 , very low , her BW showed low iron saturation 6% and low iron , nl transferrin. ECho shows Ef of 35-40% and basal akinesia - Review of Systems General: Reports: No Symptoms HEENT: Reports: No Symptoms Pulmonary: Reports: No Symptoms Cardiovascular: Reports: No Symptoms Gastrointestinal: Reports: No Symptoms Genitourinary: Reports: No Symptoms Musculoskeletal: Reports: Leg Pain Skin: Reports: No Symptoms Neurological: Reports: No Symptoms Psychiatric: Reports: No Symptoms - Patient Data Vitals - Most Recent: Last Vital Signs Temp 99.5 F 02/20/18 16:00 Pulse 105 H 02/20/18 16:00 Resp 16 02/20/18 16:00 BP 163/101 H 02/20/18 16:00 Pulse Ox 96 02/20/18 16:00 Weight - Most Recent: 140 lb Lab Results Last 24 Hours: Laboratory Results - last 24 hr 02/20/18 02/20/18 02/20/18 Range/Units 05:10 05:10 05:10 WBC 6.07 (4.0-11.0) K/uL RBC 3.41 L (4.30-5.90) M/uL Hgb 10.5 L (12.0-16.0) g/dL Hct 33.5 L (36.0-46.0) % MCV 98.2 H (80.0-98.0) fL MCH 30.8 (27.0-32.0) pg MCHC 31.3 (31.0-37.0) g/dL RDW Std Deviation 56.5 (28.0-62.0) fl RDW Coeff of Leland 16 H (11.0-15.0) % Plt Count 182 (150-400) K/uL MPV 10.30 (7.40-12.00) fL Neut % (Auto) 80.0 (48.0-80.0) % Lymph % (Auto) 10.4 L (16.0-40.0) % Howard % (Auto) 5.9 (0.0-15.0) % Eos % (Auto) 3.5 (0.0-7.0) % Baso % (Auto) 0.2 (0.0-1.5) % Neut # (Auto) 4.9 (1.4-5.7) K/uL Lymph # (Auto) 0.6 (0.6-2.4) K/uL Howard # (Auto) 0.4 (0.0-0.8) K/uL Eos # (Auto) 0.2 (0.0-0.7) K/uL Baso # (Auto) 0.0 (0.0-0.1) K/uL Nucleated RBC % 0.0 /100WBC Nucleated RBCs # 0 K/uL Sodium 136 (136-145) mmol/L Potassium 4.3 (3.5-5.1) mmol/L Chloride 100 (98-107) mmol/L Carbon Dioxide 30.7 (21.0-32.0) mmol/L BUN 8 (7.0-18.0) mg/dL Creatinine 0.8 (0.6-1.0) mg/dL Est Cr Clr Drug Dosing 74.86 mL/min Estimated GFR (MDRD) > 60.0 ml/min Glucose 112 H (74-106) mg/dL Calcium 8.4 L (8.5-10.1) mg/dL Iron 19 L (50-175) ug/dL TIBC 275 (250-450) ug/dL % Saturation 6.91 L (20-55) % Ferritin 50 (8-252) ng/mL Total Bilirubin 0.5 (0.2-1.0) mg/dL AST 35 (15-37) IU/L ALT 31 (14-63) IU/L Alkaline Phosphatase 88 (46-116) U/L Total Protein 6.3 L (6.4-8.2) g/dL Albumin 2.9 L (3.4-5.0) g/dL Globulin 3.4 (2.0-3.5) g/dL Albumin/Globulin Ratio 0.9 L (1.3-2.8) Vitamin B12 244 (193-986) pg/mL Med Orders - Current: Current Medications Discontinued Medications Acetaminophen/Butalbital/Caffeine (Fioricet 325-50-40 Mg) 1 tab PO Q4H PRN PRN Reason: migraine Al Hydroxide/Mg Hydroxide (Mag-Al Plus) 30 ml PO Q4H PRN PRN Reason: indigestion Aspirin (Aspirin) 325 mg PO BID JOHN Last Admin: 02/20/18 08:09 Dose: 325 mg Aspirin (Ecotrin) 325 mg PO ONETIME ONE Stop: 02/18/18 13:09 Last Admin: 02/18/18 13:57 Dose: 325 mg Atorvastatin Calcium (Lipitor) 80 mg PO ONETIME ONE Stop: 02/18/18 13:10 Last Admin: 02/18/18 14:00 Dose: 80 mg Atorvastatin Calcium (Lipitor) 80 mg PO ONETIME ONE Stop: 02/19/18 09:15 Last Admin: 02/19/18 10:49 Dose: 80 mg Atorvastatin Calcium (Lipitor) 40 mg PO BEDTIME [facility] Bisacodyl (Dulcolax) 10 mg RECTAL DAILY PRN PRN Reason: Constipation Bupivacaine Liposome (Exparel) 20 ml INFILT ASDIRECTED [facility] Cefazolin Sodium/Dextrose (Ancef) Confirm Administered Dose 2 gm IV .STK-MED ONE Stop: 02/18/18 07:08 Celecoxib (Celebrex) 200 mg PO BID [facility] Cyanocobalamin (Vitamin B12) 1,000 mcg SUBCUT DAILY [facility] Stop: 02/27/18 13:01 Last Admin: 02/20/18 13:30 Dose: 1,000 mcg Docusate Sodium (Colace) 100 mg PO BID [facility] Last Admin: 02/20/18 08:10 Dose: 100 mg Ephedrine Sulfate (Ephedrine Sulfate) Confirm Administered Dose 50 mg .ROUTE .STK-MED ONE Stop: 02/18/18 07:08 Ephedrine Sulfate (Ephedrine Sulfate) Confirm Administered Dose 50 mg .ROUTE .STK-MED ONE Stop: 02/18/18 09:17 Famotidine (Pepcid) 40 mg IVPUSH ONARRIVE [facility] Last Admin: 02/18/18 07:28 Dose: 40 mg Famotidine (Pepcid) 40 mg PO DAILY [facility] Last Admin: 02/20/18 08:10 Dose: 40 mg Fentanyl (Sublimaze) Confirm Administered Dose 100 mcg .ROUTE .STK-MED ONE Stop: 02/18/18 07:08 Gabapentin (Neurontin) 300 mg PO TID [facility] Last Admin: 02/20/18 13:31 Dose: 300 mg Hydromorphone HCl (Dilaudid) 2 mg IVPUSH ONETIME ONE Stop: 02/18/18 10:50 Last Admin: 02/18/18 13:55 Dose: Not Given Hydromorphone HCl (Dilaudid) 1 mg IVPUSH ONETIME ONE Stop: 02/19/18 09:08 Last Admin: 02/19/18 09:13 Dose: 1 mg Hydromorphone HCl (Dilaudid) 0.5 - 1 mg IVPUSH Q3H PRN PRN Reason: Pain Last Admin: 02/20/18 11:10 Dose: 0.5 mg Cefazolin Sodium/Dextrose 1 gm (/ Premix) 50 mls @ 100 mls/hr IV ONCALL JOHN Ropivacaine 49.25 ml/Ketorolac Tromethamine 30 mg/Epinephrine HCl 0.5 mg/ Clonidine HCl 80 mcg/ Sodium Chloride 76.55 mls @ 50 mls/sec INJECT ASDIRECTED [facility] Lactated Ringer's (Ringers, Lactated) 1,000 mls @ 100 mls/hr IV ASDIRECTED [facility] Last Admin: 02/18/18 07:15 Dose: 100 mls/hr Tranexamic Acid 4,000 mg/ (Sodium Chloride) 140 mls @ 600 mls/hr IV ASDIRECTED [facility] Acetaminophen 1,000 mg/ Premix 100 mls @ 400 mls/hr IV Q6H [facility] Stop: 02/19/18 01:14 Last Admin: 02/19/18 00:49 Dose: 400 mls/hr Cefazolin Sodium/Dextrose 1 gm (/ Premix) 50 mls @ 100 mls/hr IV Q8H [facility] Stop: 02/19/18 00:29 Last Admin: 02/19/18 00:21 Dose: 100 mls/hr Phenylephrine HCl 10 mg/ (Sodium Chloride) 100 mls @ 24 mls/hr IV TITRATE JOHN; Protocol Last Titration: 02/18/18 14:00 Dose: 0 mcg/min, 0 mls/hr Lactated Ringer's (Ringers, Lactated) 1,000 mls @ 125 mls/hr IV ASDIRECTED [facility] Last Admin: 02/19/18 04:48 Dose: 125 mls/hr Ketorolac Tromethamine (Toradol) 30 mg IVPUSH ONARRIVE [facility] Last Admin: 02/18/18 07:23 Dose: 30 mg Ketorolac Tromethamine (Toradol) 30 mg IVPUSH Q6H [facility] Stop: 02/19/18 05:00 Last Admin: 02/19/18 00:49 Dose: 30 mg Lisinopril (Prinivil) 10 mg PO DAILY [facility] Last Admin: 02/20/18 08:12 Dose: 10 mg Metoprolol Succinate (Toprol Xl) 50 mg PO QAM [facility] Last Admin: 02/20/18 08:10 Dose: 50 mg Metoprolol Succinate (Toprol Xl) 50 mg PO DAILY [facility] Last Admin: 02/19/18 11:04 Dose: Not Given Midazolam HCl (Versed 1 Mg/Ml) Confirm Administered Dose 2 mg .ROUTE .STK-MED ONE Stop: 02/18/18 07:08 Midazolam HCl (Versed 1 Mg/Ml) Confirm Administered Dose 2 mg .ROUTE .STK-MED ONE Stop: 02/18/18 08:33 Morphine Sulfate (Morphine Conveyor Technician 30 Mg In 30 Ml) 30 mg IV ASDIRECTED [facility]; Protocol Stop: 02/19/18 08:00 Last Admin: 02/18/18 10:27 Dose: 30 mg Morphine Sulfate (Morphine) 1 - 3 mg IVPUSH Q3H PRN PRN Reason: Pain Ondansetron HCl (Zofran) Confirm Administered Dose 4 mg .ROUTE .STK-MED ONE Stop: 02/18/18 08:21 Ondansetron HCl (Zofran) 4 mg IV Q6HR PRN PRN Reason: NAUSEA/VOMITING Oxycodone HCl (Oxycodone) 5 - 10 mg PO Q4H PRN PRN Reason: Pain Stop: 02/19/18 08:00 Last Admin: 02/19/18 05:21 Dose: 10 mg Oxycodone HCl (Oxycodone) 5 - 10 mg PO Q4H PRN PRN Reason: Pain Last Admin: 02/19/18 08:54 Dose: 10 mg Oxycodone/Acetaminophen (Percocet 325-5 Mg) 1 - 2 tab PO Q4H PRN PRN Reason: Pain Oxycodone/Acetaminophen (Percocet 325-10 Mg) 1 - 2 tab PO Q4H PRN PRN Reason: Pain Last Admin: 02/20/18 12:37 Dose: 2 tab Ipratropium [place] 0.03 Percent Nasal [place] 1 each [facility] Last Admin: 02/20/18 09:48 Dose: Not Given Phenylephrine HCl (Phenylephrine In Ns 100 Mcg/Ml) Confirm Administered Dose 1 mg .ROUTE .STK-MED ONE Stop: 02/18/18 07:08 Potassium Chloride (Klor-Con M20) 20 meq PO BID JOHN Last Admin: 02/20/18 08:12 Dose: 20 meq Promethazine HCl (Phenergan) 25 mg IM ONETIME ONE Stop: 02/18/18 10:50 Last Admin: 02/18/18 13:56 Dose: Not Given Propofol (Diprivan 20 Ml) Confirm Administered Dose 600 mg .ROUTE .STK-MED ONE Stop: 02/18/18 07:13 Scopolamine (Transderm-Scop) 1.5 mg TRDERM ONARRIVE JOHN Last Admin: 02/18/18 07:35 Dose: 1.5 mg Tramadol HCl (Ultram) 50 - 100 mg PO Q6H PRN PRN Reason: Pain Last Admin: 02/20/18 10:03 Dose: 100 mg Tranexamic Acid (Cyklokapron) Confirm Administered Dose 4,000 mg .ROUTE .STK- MED ONE Stop: 02/18/18 07:17 - Exam General: Alert, Oriented HEENT: Pupils Equal, Pupils Reactive Neck: Supple, Trachea Midline Lungs: Clear to Auscultation, Normal Respiratory Effort Cardiovascular: Regular Rate, Regular Rhythm, No Murmurs GI/Abdominal Exam: Normal Bowel Sounds, Soft, Non-Tender, No Organomegaly (Female) Exam: Normal External Exam Back Exam: Normal Inspection Extremities: Normal Inspection Skin: Warm, Dry Neurological: No New Focal Deficit Psy/Mental Status: Alert, Normal Affect Consult PN Assessment/Plan Procedures: Procedures ASSAY OF ESTRADIOL (11/30/17) ASSAY OF FERRITIN (11/30/17) ASSAY OF FOLIC ACID SERUM (12/04/17) ASSAY OF GONADOTROPIN (FSH) (11/30/17) ASSAY THYROID STIM HORMONE (11/30/17) NAM DNA DIR PROBE (12/04/17) COMPLETE CBC AUTOMATED (11/30/17) ALVAREZ VAG DNA DIR PROBE (12/04/17) IMMUNOASSAY TUMOR CA 125 (12/04/17) IRON BINDING TEST (11/30/17) KNEE ARTHROSCOPY/SURGERY (11/17/15) MRI JNT OF LWR EXTRE W/O DYE (01/21/18) PT EVALUATION (12/16/15) THER/PROPH/DIAG IV INF INIT (12/13/17) THERAPEUTIC EXERCISES (12/16/15) TISSUE EXAM BY PATHOLOGIST (12/04/17) TRICHOMONAS VAGIN DIR PROBE (12/04/17) URINE TEST (11/17/15) VITAMIN B-12 (12/04/17) X-RAY EXAM HIPS BI 2 VIEWS (04/26/17) X-RAY EXAM KNEE 4 OR MORE (01/15/18) X-RAY EXAM OF KNEE 3 (10/13/15) (2) Chest pain due to myocardial ischemia SNOMED Code(s): 660229392 Code(s): I25.9 - CHRONIC ISCHEMIC HEART DISEASE, UNSPECIFIED (3) Elevated troponin SNOMED Code(s): 090727123, 455776513, 716099957 Code(s): R74.8 - ABNORMAL LEVELS OF OTHER SERUM ENZYMES (4) HTN (hypertension), benign SNOMED Code(s): 74275486 Code(s): I10 - ESSENTIAL (PRIMARY) HYPERTENSION (5) S/P gastric bypass SNOMED Code(s): 725844368, 098997778, 792038355, 603910307 Code(s): Z98.84 - BARIATRIC SURGERY STATUS (6) Anemia SNOMED Code(s): 850208984 Code(s): D64.9 - ANEMIA, UNSPECIFIED (7) Migraine SNOMED Code(s): 64451718 Code(s): G43.909 - MIGRAINE, UNSP, NOT INTRACTABLE, WITHOUT STATUS MIGRAINOSUS (8) Status post left knee replacement SNOMED Code(s): 5730614384072, 1424118864861 Code(s): Z96.652 - PRESENCE OF LEFT ARTIFICIAL KNEE JOINT (9) Systolic CHF SNOMED Code(s): 356271838 Code(s): I50.20 - UNSPECIFIED SYSTOLIC (CONGESTIVE) HEART FAILURE (10) Diastolic CHF SNOMED Code(s): 128512491, 105422006 Code(s): I50.30 - UNSPECIFIED DIASTOLIC (CONGESTIVE) HEART FAILURE Problem List Initiated/Reviewed/Updated: Yes My Orders Last 24 Hours: My Active Orders 02/19/18 23:52 OCCULT BLOOD DIAGNOSTIC [OP] Routine Plan: Patient was d/c home by orthos. She was advised to continue atorvastaine 40 mg po daily , B12 sq daily for 7 days than q 2 weeks for 2 months and than q monthly She was also given prescription for ferrous sulphate 325 mg Tid for 2 moths and was told about the echo findings and to f/up with cardiology and ortho
== END 2018-02-20 18:01 | disposition home or self-care (01) | DRG 302 ==
LOC: MW.SDS 06:43 → MW.ICU 11:04 → MW.SDS 12:30 → MW.ICU 21:32 → MW.MS 02-19 20:52
PROVIDERS: ADMIT Orthopaedic Surgery; ATTEND Orthopaedic Surgery
PROC: 0SRD0J9 Replacement of Left Knee Joint with Synthetic Substitute, Cemented, Open Approach (ICD-10-PCS; principal; 2018-02-18)
DX: M17.12 Unilateral primary osteoarthritis, left knee (principal); I95.2 Hypotension due to drugs; T41.45XA Adverse effect of unspecified anesthetic, initial encounter; Y92.234 Operating room of hospital as the place of occurrence of the external cause; R07.89 Other chest pain; I25.9 Chronic ischemic heart disease, unspecified; I11.0 Hypertensive heart disease with heart failure; I50.20 Unspecified systolic (congestive) heart failure; G89.29 Other chronic pain; R74.8 Abnormal levels of other serum enzymes; D62 Acute posthemorrhagic anemia; E53.8 Deficiency of other specified B group vitamins; F41.9 Anxiety disorder, unspecified; G43.909 Migraine, unspecified, not intractable, without status migrainosus; H53.149 Visual discomfort, unspecified; M94.262 Chondromalacia, left knee; Z98.84 Bariatric surgery status; Z88.8 Allergy status to other drugs, medicaments and biological substances; Z79.899 Other long term (current) drug therapy
CPT/HCPCS: 36415; 73560-26-LT; 73560-LT; 80048; 80053; 80061; 80305-QW; 81025; 82607; 82728; 83036; 83550; 84484; 85014; 85018; 85025; 86850; 86870; 86900; 86901; 86902; 93005; 93306; 97110-GP; 97161-GP; A9270-GY; J0131; J0171; J0690; J0735; J1170; J1885; J2250; J2274; J2370; J2405; J2704; J2795; J3010; J3420; J3490; J7030; J7050; J7120

== ENCOUNTER 2018-12-17 11:51 | Day surgery (SDC) | payer BC, OTHER ==
[~2018-12-17 11:51] MED LIST changes: +Betamethasone Acetate/Betamethasone Sod Phosphate 30 MG/5 ML MDV ONE; -Famotidine 20 MG/2 ML SDV IVPUSH SCH; +Iopamidol 200-M 10 ML vial ITHECAL ONE; -Ketorolac 30 MG/ML SDV IVPUSH SCH; -Lactated Ringers 1,000 ML IV SCH; +Lidocaine 2% 5 ML SDV ONE; +Ropivacaine 0.5% 5 MG/ML 30 ML SDV ONE; -Scopolamine 1.5 MG Transdermal Patch TRDERM SCH
--- NOTE | 2018-12-17 19:31 | OR ---
SURGEON: Sultana De Oliveira D.O. DATE OF PROCEDURE: 12/17/2018 PRIMARY SURGEON: Sultana De Oliveira D.O. OPERATING ROOM STAFF PRESENT: 1. Faisal Ritter RN. 2. Moe Ramirez RN. 3. RT Luis Alfredo. WOUND CLASS: I. PREOPERATIVE DIAGNOSES: 1. Lumbar degenerative disk disease. 2. Lumbar spondylosis. 3. Lumbar spinal stenosis. 4. Lumbar neuroforaminal stenosis, right. 5. Lumbar sacral radiculopathy. POSTOPERATIVE DIAGNOSES: 1. Lumbar degenerative disk disease. 2. Lumbar spondylosis. 3. Lumbar spinal stenosis. 4. Lumbar neuroforaminal stenosis, right. 5. Lumbar sacral radiculopathy. PROCEDURES PERFORMED: 1. Right L4 transforaminal epidural steroid injection. 2. Right S1 transforaminal epidural steroid injection. 3. Fluoroscopic guidance for needle placement. 4. Local with oral valium for sedation. SCREENING QUESTIONS: The patient answered "no" to all of the following questions: 1. Are you allergic to iodine, Betadine or latex? 2. Do you have a bleeding disorder? 3. Do you have any joint replacements, heart valve replacements, or a pacemaker? 4. Are you allergic to anti-inflammatories or blood thinners? 5. Do you have any current local or systemic infections? MEDICAL NECESSITY: This is a patient with a history of chronic low back pain and lower extremity radicular pain in the above dermatomal pattern that comes in for the above diagnostic and therapeutic procedure. Pertinent positives and negatives for this suspected disease process along with the diagnostic findings and testing are in the patient's history and physical exam. The most salient feature includes radicular pain in the above dermatomal pattern. The patient had failed attempts at conservative therapy including physical therapy, nonsteroidal anti- inflammatory drugs, and other medications. No contraindications to perform this procedure including medical, no bleeding disorders or infections, no psychological, no antisocial personality disorder or active addiction disorder. There are no work-related issues, and, in general, the patient does not have any history of multiple prior interventions, surgeries or nerve blocks which have failed to return the patient to function. The patient's other symptoms to be treated include numbness, paresthesia, dysesthesia or hypoesthesia referred into the left lower extremity or any weakness in the involved myotome. This procedure is being performed in accordance with national guidelines as written by the [employer] (MAMADOU). DESCRIPTION OF PROCEDURE: The patient had the procedure thoroughly explained including risks, benefits and alternatives. Consent was signed in my clinic indicating understanding and willingness to proceed. The patient presented to [facility] [place] where the patient was escorted to the dressing room to disrobe and change into a hospital gown. Preoperative vital signs were taken and stable. The patient reported that Valium was taken prior to the procedure. The patient was brought to the procedure room and placed in the prone position on the table. A pillow was placed under the abdomen in order to flatten the lumbar lordosis. The back was prepped with ChloraPrep and sterilely draped. All personnel in the operating room were dressed in appropriate attire including surgical scrubs, head and shoe covers. This was to ensure sterility while in the treatment room. During the time fluoroscopy was in use, all personnel in the operating room wore lead hanks with thyroid collars. Sterile technique was used during the procedure. The fluoroscope was placed for the right L4 transforaminal epidural steroid injection. There was no sign of infection at the skin site for needle insertion. The skin was anesthetized with 2% lidocaine with a 27 gauge 1-1/2 inch needle. Then a 22 gauge 3-1/2 inch spinal needle, advanced to the foramen. Under direct fluoroscopic guidance needle position was verified in three views; AP, oblique and lateral, with 0.2 cubic centimeters increments of Isovue-200 dye. No intravascular flow pattern was observed under live fluoroscopy. A total of 6 milligrams of Celestone was slowly injected after negative aspiration of heme, cerebrospinal fluid and no paresthesias were noted. The needle was cleared prior to removal from the skin. The fluoroscope was placed for the right S1 transforaminal epidural steroid injection. There was no sign of infection at the skin site for needle insertion. The skin was anesthetized with 2% lidocaine with a 27 gauge 1-1/2 inch needle. Then a 22 gauge 3-1/2 inch spinal needle, advanced to the foramen. Under direct fluoroscopic guidance needle position was verified in three views; AP, oblique and lateral, with 0.2 cubic centimeters increments of Isovue-200 dye. No intravascular flow pattern was observed under live fluoroscopy. A total of 6 milligrams of Celestone was slowly injected after negative aspiration of heme, cerebrospinal fluid and no paresthesias were noted. The needle was cleared prior to removal from the skin. No adverse reactions were noted. The patient was brought to the recovery room awake and in good condition by my staff. The patient was monitored and discharge instructions were given after a brief stay in the recovery area. Both oral and written discharge and follow up instructions were given. The patient will follow up in the clinic in 3-4 weeks post procedure to evaluate the efficacy. The patient verbalized understanding including understanding of those signs and symptoms that would require emergency care and knows how to contact the office if there are any problems or questions in the meantime. PREOPERATIVE PAIN: 01/01 POSTOPERATIVE PAIN: 08/04 FOLLOWUP: In the Pain Clinic in 3 weeks. NANCY / TEETEE /[id number] MTDCat
== END 2018-12-17 14:15 ==
LOC: MW.SDS 11:51
PROVIDERS: ATTEND Anesthesiology
DX: M51.36 Other intervertebral disc degeneration, lumbar region (principal); M47.26 Other spondylosis with radiculopathy, lumbar region; M48.061 Spinal stenosis, lumbar region without neurogenic claudication; M54.17 Radiculopathy, lumbosacral region
CPT/HCPCS: 64483; 64484; J0702; J2001; J2795; Q9966; 62323

== ENCOUNTER 2019-04-15 11:09 | Day surgery (SDC) | payer OTHER ==
[~2019-04-15 11:09] MED LIST changes: +Betamethasone Acetate/Betamethasone Sod Phosphate 30 MG/5 ML MDV EPIDUR ONE; -Betamethasone Acetate/Betamethasone Sod Phosphate 30 MG/5 ML MDV ONE; +Lidocaine 2% 5 ML SDV INJECT ONE; -Lidocaine 2% 5 ML SDV ONE; +Ropivacaine 0.5% 5 MG/ML 30 ML SDV INJECT ONE; -Ropivacaine 0.5% 5 MG/ML 30 ML SDV ONE
--- NOTE | 2019-04-15 19:17 | OR ---
SURGEON: Sultana De Oliveira D.O. DATE OF PROCEDURE: 04/15/2019 PRIMARY SURGEON: Sultana De Oliveira DO. ASSISTANTS: OR staff present: 1. Phan Varma RN. 2. Tawana Sinha RN. 3. RT Luis Alfredo. WOUND CLASS: I. PREOPERATIVE DIAGNOSES: 1. Lumbar degenerative disk disease. 2. Lumbar radiculopathy, L5-S1, right lower extremity. POSTOPERATIVE DIAGNOSES: 1. Lumbar degenerative disk disease. 2. Lumbar radiculopathy, L5-S1, right lower extremity. PROCEDURES PERFORMED: 1. Right S1 transforaminal epidural steroid injection. 2. Fluoroscopic guidance for needle placement. ANESTHESIA: Local with oral valium for sedation. SCREENING QUESTIONS: The patient answered "no" to all of the following questions: 1. Are you allergic to iodine, Betadine or latex? 2. Do you have a bleeding disorder? 3. Do you have any joint replacements, heart valve replacements, or a pacemaker? 4. Are you allergic to anti-inflammatories or blood thinners? 5. Do you have any current local or systemic infections? MEDICAL NECESSITY: This is a patient with a history of chronic low back pain and lower extremity radicular pain in the above dermatomal pattern that comes in for the above diagnostic and therapeutic procedure. Pertinent positives and negatives for this suspected disease process along with the diagnostic findings and testing are in the patient's history and physical exam. The most salient feature includes radicular pain in the above dermatomal pattern. The patient had failed attempts at conservative therapy including physical therapy, nonsteroidal anti- inflammatory drugs, and other medications. No contraindications to perform this procedure including medical, no bleeding disorders or infections, no psychological, no antisocial personality disorder or active addiction disorder. There are no work-related issues, and, in general, the patient does not have any history of multiple prior interventions, surgeries or nerve blocks which have failed to return the patient to function. The patient's other symptoms to be treated include numbness, paresthesia, dysesthesia or hypoesthesia referred into the left lower extremity or any weakness in the involved myotome. This procedure is being performed in accordance with national guidelines as written by the [employer] ([place]). DESCRIPTION OF PROCEDURE: The patient had the procedure thoroughly explained including risks, benefits and alternatives. Consent was signed in my clinic indicating understanding and willingness to proceed. The patient presented to [facility] [place] where the patient was escorted to the dressing room to disrobe and change into a hospital gown. Preoperative vital signs were taken and stable. The patient reported that Valium was taken prior to the procedure. The patient was brought to the procedure room and placed in the prone position on the table. A pillow was placed under the abdomen in order to flatten the lumbar lordosis. The back was prepped with ChloraPrep and sterilely draped. All personnel in the operating room were dressed in appropriate attire including surgical scrubs, head and shoe covers. This was to ensure sterility while in the treatment room. During the time fluoroscopy was in use, all personnel in the operating room wore lead hanks with thyroid collars. Sterile technique was used during the procedure. The fluoroscope was placed for the right S1 transforaminal epidural steroid injection. There was no sign of infection at the skin site for needle insertion. The skin was anesthetized with 2% lidocaine with a 27 gauge 1-1/2 inch needle. Then, a 22 gauge 3-1/2 inch spinal needle, advanced to the right S1. Under direct fluoroscopic guidance needle position was verified in three views; AP, oblique and lateral, with 0.2 cubic centimeters increments of Isovue- 200 dye. No intravascular flow pattern was observed under live fluoroscopy. Then 12 milligrams of Celestone was slowly injected after negative aspiration of heme, cerebrospinal fluid and no paresthesias were noted. The needle was cleared prior to removal from the skin. No adverse reactions were noted. The patient was brought to the recovery room awake and in good condition by my staff. The patient was monitored and discharge instructions were given after a brief stay in the recovery area. Both oral and written discharge and follow up instructions were given. The patient will follow up in the clinic in 3-4 weeks post procedure to evaluate the efficacy. The patient verbalized understanding including understanding of those signs and symptoms that would require emergency care and knows how to contact the office if there are any problems or questions in the meantime. PREOPERATIVE PAIN: 7/10. POSTOPERATIVE PAIN: 0/10. FOLLOWUP: In the Pain Clinic in 3 weeks. HOGMALATHI / TEETEE /[id number]
== END 2019-04-15 14:00 | disposition home or self-care (01) ==
LOC: MW.SDS 11:09
PROVIDERS: ATTEND Anesthesiology
DX: G89.29 Other chronic pain (principal); M51.16 Intervertebral disc disorders with radiculopathy, lumbar region; M48.061 Spinal stenosis, lumbar region without neurogenic claudication; M47.26 Other spondylosis with radiculopathy, lumbar region; M79.18 Myalgia, other site; M17.11 Unilateral primary osteoarthritis, right knee; F32.9 Major depressive disorder, single episode, unspecified; Z88.5 Allergy status to narcotic agent; Z79.1 Long term (current) use of non-steroidal anti-inflammatories (NSAID); Z79.899 Other long term (current) drug therapy
CPT/HCPCS: 64483; 81025; J0702